=== PATIENT | male | born 1955 | race Caucasian/White ===

== ENCOUNTER 2016-10-21 16:21 | Inpatient (IN) | payer SELFPAY ==
[~2016-10-21] VITALS: Ht 182.9 cm; Wt 77.1 kg
[2016-10-21] MEDS ORDERED: SODIUM CHLOR 0.9% 1000 ML INJ 1,000 ML IV SCH (16:41)
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
--- NOTE | 2016-10-21 17:38 | RADRPT ---
EXAM DATE/TIME: 10/21/2016 17:02 [facility] COMPARISON: CHEST SINGLE AP, June 13, 2015, 18:25. INDICATIONS : Syncopal episode. MEDICAL HISTORY : None. SURGICAL HISTORY : None. ENCOUNTER: Initial ACUITY: 1 day PAIN SCORE: 0/10 LOCATION: chest FINDINGS: The lungs are clear without infiltrate, nodule, or mass. There is no appreciable pleural effusion fo r technique. Heart and mediastinum are unremarkable. CONCLUSION: No acute cardiopulmonary disease. Holger Reddy MD on October 21, 2016 at 17:36 Board Certified Radiologist. This report was verified electronically.
[2016-10-21 17:49] VITALS: O2SAT 95
[2016-10-21 18:10] LABS: AUTOMATED NEUTROPHIL # 9.8 TH/MM3 (1.8-7.7); BASOPHIL # 0.1 TH/MM3 (0-0.2); BASOPHIL % 0.8 % (0.0-2.0); HEMATOCRIT 47.4 % (39.0-51.0); HEMO FLAGS DIFF FINAL; LYMPH % 4.6 % (9.0-44.0); LYMPHOCYTE # 0.5 TH/MM3 (1.0-4.8); MEAN CELL VOLUME 108.8 FL (80.0-100.0); MEAN CORPUSCULAR HEMOGLOBIN 37.4 PG (27.0-34.0); MEAN CORPUSCULAR HGB CONC 34.4 % (32.0-36.0); MONO % 9.4 % (0.0-8.0); NEUT % 85.2 % (16.0-70.0); PLATELET COUNT 211 TH/MM3 (150-450); RED BLOOD COUNT 4.35 MIL/MM3 (4.50-5.90); RED CELL DISTRIBUTION WIDTH 13.2 % (11.6-17.2); WHITE BLOOD COUNT 11.5 TH/MM3 (4.0-11.0)
[2016-10-21 18:18] LABS: APTT (PATIENT) 25.5 SEC (24.3-30.1); INTERNATIONAL NORMALIZED RATIO 1.2 RATIO; PROTHROMBIN TIME - PATIENT 12.9 SEC (9.8-11.6)
[2016-10-21 18:36] LABS: ANION GAP 13 MEQ/L (5-15); CHLORIDE 92 MEQ/L (98-107); GLOMERULAR FILTRATION RATE 71 ML/MIN (>89); MAGNESIUM 1.6 MG/DL (1.5-2.5); SODIUM (NA) 135 MEQ/L (136-145)
[2016-10-21 18:37] LABS: BLOOD UREA NITROGEN 4 MG/DL (7-18)
[2016-10-21 18:39] LABS: POTASSIUM 2.7 MEQ/L (3.5-5.1)
--- NOTE | 2016-10-21 18:40 | RADRPT ---
EXAM DATE/TIME: 10/21/2016 18:11 [facility] COMPARISON: CT BRAIN W/O CONTRAST, June 13, 2015, 19:00. INDICATIONS : Altered mental status. RADIATION DOSE: 56.35 CTDIvol (mGy) MEDICAL HISTORY : Non-responsive. SURGICAL HISTORY : Non-responsive. ENCOUNTER: Initial ACUITY: 1 day PAIN SCALE: Non-responsive LOCATION: cranial TECHNIQUE: Multiple contiguous axial images were obtained of the head. Using automated exposure control and adj ustment of the mA and/or kV according to patient size, radiation dose was kept as low as reasonably a chievable to obtain optimal diagnostic quality images. FINDINGS: CEREBRUM: The ventricles are normal for age. No evidence of midline shift, mass lesion, hemorrhage or acute in farction. No extra-axial fluid collections are seen. POSTERIOR FOSSA: The cerebellum and brainstem are intact. The 4th ventricle is midline. The cerebellopontine angle i s unremarkable. Prominent CSF signal posteriorly likely negative cisterna magna versus less likely ar achnoid cyst, unchanged. EXTRACRANIAL: The visualized portion of the orbits is intact. The there is complete opacification of the left maxil luzmaria sinus, left ethmoid sinus and left frontal sinus. Obstructing mass cannot be excluded. There is bulging of the medial wall of the left maxillary sinus. SKULL: The calvaria is intact. No evidence of skull fracture. CONCLUSION: 1. No acute intracranial abnormality. 2. Complete opacification left maxillary, ethmoid and frontal sinus. Obstructing mass is suspected. E ndoscopy and biopsy recommended if not performed in the past. Los Danielle MD on October 21, 2016 at 18:36 Board Certified Radiologist. This report was verified electronically.
[2016-10-21] MEDS ORDERED: NS + KCL 20 MEQ INJ 1,000 ML IV SCH (18:45)
[2016-10-21] MEDS ORDERED: POTASSIUM CHLORIDE 20 MEQ CONTROLLED RELEASE TAB PO ONE (18:45)
[2016-10-21 18:47] VITALS: BP 135/88; PULSE 109; RESP 18; TEMP 98.2; O2SAT 95
[2016-10-21 19:01] LABS: CREATINE KINASE 63 U/L (39-308)
[2016-10-21] MEDS ORDERED: BISACODYL 10 MG SUPP RECTAL PRN (20:00)
[2016-10-21] MEDS ORDERED: LORazepam 1 MG TAB PO PRN (20:00)
[2016-10-21] MEDS ORDERED: FLUMAZENIL 0.5 MG/5 ML VIAL IV PUSH PRN (20:00)
[2016-10-21] MEDS: THIAMINE INJ 100 MG in SODIUM CHLORIDE 0.9% INJ 100 ML IV SCH ×2 (20:00→22:00)
[2016-10-21] MEDS ORDERED: HALOPERIDOL LACTATE 5 MG/ML AMP IM PRN (20:00)
[2016-10-21] MEDS ORDERED: ACETAMINOPHEN 325 MG TAB PO PRN (20:00)
[2016-10-21] MEDS ORDERED: LORazepam 2 MG TAB PO PRN (20:00)
[2016-10-21] MEDS: MULTIVITAMIN INJ 10 ML, FOLIC ACID INJ 1 MG in SODIUM CHLORID 0.9% 500 ML INJ 500 ML IV SCH (20:00)
[2016-10-21] MEDS ORDERED: ONDANSETRON HCL 4 MG/2 ML VIAL IVP PRN (20:00)
[2016-10-21] MEDS ORDERED: MORPHINE SULFATE 4 MG/ML INJ IV PRN (20:00)
[2016-10-21] MEDS ORDERED: LORazepam 2 MG/ML VIAL IV PUSH PRN ×4 (20:00)
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
[2016-10-21] MEDS: SODIUM CHLORIDE 0.9% FLUSH 10 ML FLUSH IV FLUSH SCH (21:00)
[2016-10-21 22:02] VITALS: BP 136/94; PULSE 105; RESP 16; O2SAT 98
[2016-10-22] VITALS (10 sets, daily range): BP systolic 119–150; BP diastolic 74–106; PULSE 79–110; RESP 16–22; TEMP 96.7–99; O2SAT 92–98
[2016-10-22 01:09] LABS: BACTERIA, URINE OCC /hpf; BLOOD, URINE NEG (NEG); GLUCOSE,URINE NEG (NEG); KETONE, URINE NEG (NEG); NITRITE,URINE NEG (NEG); SQUAMOUS EPITHELIAL CELL URINE <1 /hpf (0-5); URINE COLOR YELLOW (YELLW/STRAW)
[2016-10-22 01:11] LABS: AMPHETAMINE, URINE NEG (NEG); BARBITURATES, URINE NEG (NEG); COCAINE, URINE NEG (NEG)
[2016-10-22 01:12] LABS: COMMENT (UR) CULTURE INDICATED; CULTURE IF INDICATED CULTURE INDICATED
[2016-10-22 07:43] LABS: AUTOMATED NEUTROPHIL # 3.6 TH/MM3 (1.8-7.7); BASOPHIL % 0.7 % (0.0-2.0); EOSINOPHIL % 0.3 % (0.0-4.0); HEMATOCRIT 37.6 % (39.0-51.0); HEMO FLAGS DIFF FINAL; LYMPH % 11.2 % (9.0-44.0); LYMPHOCYTE # 0.5 TH/MM3 (1.0-4.8); MEAN CELL VOLUME 108.5 FL (80.0-100.0); MEAN CORPUSCULAR HGB CONC 34.1 % (32.0-36.0); MONO % 11.4 % (0.0-8.0); NEUT % 76.4 % (16.0-70.0); PLATELET COUNT 133 TH/MM3 (150-450); RED BLOOD COUNT 3.46 MIL/MM3 (4.50-5.90); RED CELL DISTRIBUTION WIDTH 13.2 % (11.6-17.2); WHITE BLOOD COUNT 4.7 TH/MM3 (4.0-11.0)
[2016-10-22 08:18] LABS: ALKALINE PHOSPHATASE 262 U/L (45-117); ALT (GPT) 77 U/L (12-78); ANION GAP 8 MEQ/L (5-15); AST (GOT) 149 U/L (15-37); BICARBONATE 29.1 MEQ/L (21.0-32.0); BLOOD UREA NITROGEN 3 MG/DL (7-18); CHLORIDE 101 MEQ/L (98-107); GLOMERULAR FILTRATION RATE 139 ML/MIN (>89); SODIUM (NA) 138 MEQ/L (136-145); TOTAL BILIRUBIN ADULT 4.5 MG/DL (0.2-1.0)
[2016-10-22 08:36] LABS: POTASSIUM 2.8 MEQ/L (3.5-5.1)
--- NOTE | 2016-10-22 08:40 | PD.CONS ---
History of Present Illness Service ENT Consult Requested By ED Reason for Consult Sinusitis Primary Care Physician No Primary Care Physician Diagnoses: History of Present Illness 61 year old male presented with a syncopal episode and fall. CT head was completed and shows complete opacification of the left maxillary sinus with expansion. Patient notes he does have chronic sinuitis with mild nasal drainage and obstruction on occasion. He feels fairly clear now. Review of Systems Ears, nose, mouth, throat: COMPLAINS OF: Nasal discharge, Running Nose, Sinus Pain, DENIES: Tinnitus, Oral lesions, Throat pain, Hoarseness, Epistaxis Past Family Social History Allergies: Coded Allergies: No Known Allergies (Unverified , 06/13/15) Physical Exam Vital Signs Vital Signs Date Time Temp Pulse Resp B/P Pulse Ox O2 Delivery O2 Flow Rate FiO2 10/22/16 04:28 110 10/22/16 04:00 96.7 102 18 119/80 96 10/22/16 01:27 97.2 104 19 148/88 97 10/22/16 00:30 101 22 150/95 92 Room Air 10/21/16 22:02 105 16 136/94 98 10/21/16 18:47 98.2 109 18 135/88 95 10/21/16 17:49 115 95 Room Air 10/21/16 17:49 95 Room Air Physical Exam GENERAL: This is a well-nourished, well-developed patient, in no apparent distress. SKIN: No rashes, ecchymoses or lesions. Cool and dry. HEAD: Atraumatic. Normocephalic. No temporal or scalp tenderness. EYES: Pupils equal round and reactive. Extraocular motions intact. No scleral icterus. No injection or drainage. ENT: Nose without bleeding. There is mild purulent drainage at the left middle meatus. No septal hematoma. Throat without erythema, tonsillar hypertrophy or exudate. Uvula midline. Airway patent. NECK: Trachea midline. No JVD or lymphadenopathy. Supple, nontender, no meningeal signs. Laboratory Laboratory Tests Test 10/21/16 10/22/16 10/22/16 17:15 00:43 06:31 Prothrombin Time 12.9 Prothromb Time International 1.2 Ratio Activated Partial 25.5 Thromboplast Time Sodium Level 135 Potassium Level 2.7 Chloride Level 92 Carbon Dioxide Level 30.0 Anion Gap 13 Blood Urea Nitrogen 4 Creatinine 1.05 Estimat Glomerular Filtration 71 Rate Random Glucose 126 Calcium Level 8.8 Magnesium Level 1.6 Total Creatine Kinase 63 Troponin I LESS THAN 0.02 Thyroid Stimulating Hormone 2.110 3rd Gen Ethyl Alcohol Level 6 White Blood Count 11.5 4.7 Red Blood Count 4.35 3.46 Hemoglobin 16.3 12.8 Hematocrit 47.4 37.6 Mean Corpuscular Volume 108.8 108.5 Mean Corpuscular Hemoglobin 37.4 37.0 Mean Corpuscular Hemoglobin 34.4 34.1 Concent Red Cell Distribution Width 13.2 13.2 Platelet Count 211 133 Mean Platelet Volume 8.5 8.4 Neutrophils (%) (Auto) 85.2 76.4 Lymphocytes (%) (Auto) 4.6 11.2 Monocytes (%) (Auto) 9.4 11.4 Eosinophils (%) (Auto) 0.0 0.3 Basophils (%) (Auto) 0.8 0.7 Neutrophils # (Auto) 9.8 3.6 Lymphocytes # (Auto) 0.5 0.5 Monocytes # (Auto) 1.1 0.5 Eosinophils # (Auto) 0.0 0.0 Basophils # (Auto) 0.1 0.0 CBC Comment DIFF FINAL DIFF FINAL Differential Comment Urine Color YELLOW Urine Turbidity CLEAR Urine pH 7.0 Urine Specific [place] 1.003 Urine Protein NEG Urine Glucose (UA) NEG Urine Ketones NEG Urine Occult Blood NEG Urine Nitrite NEG Urine Bilirubin SMALL Urine Urobilinogen 4.0 Urine Leukocyte Esterase MOD Urine RBC 1 Urine WBC 10 Urine Squamous Epithelial <1 Cells Urine Amorphous Sediment RARE Urine Bacteria OCC Microscopic Urinalysis Comment CULTURE INDICATED Urine Opiates Screen NEG Urine Barbiturates Screen NEG Urine Amphetamines Screen NEG Urine Benzodiazepines Screen NEG Urine Cocaine Screen NEG Urine Cannabinoids Screen NEG Date/Time Procedure Status Source Growth 10/22/16 00:43 Urine Culture Received Urine Random Urine Pending Result Diagram: 10/22/16 0631 10/21/[address] head shows left front-ethmoid and maxillary obstruction. Some expansion of the maxillary sinus with polypoid change. CT head from June 2015 shows similar findings. No change in soft tissue from that exam. Assessment and Plan Assessment and Plan 61 year old male chronic sinusitis. There is some acute purulence. CT head from a year and a half ago is very similar. All this goes against any neoplastic process. Will treat medically with Decadron and Unasyn as inpatient. Coudl continue 2 week course of Augmentin as outpatient. Alternatively if cost is an isue could continue 2 weeks of Septa DS or Cipro, free at [facility]. Will check dedicated CT of the sinuses, no contrast. Joseph Buckner MD Oct 22, 2016 08:40
[2016-10-22] MEDS: SODIUM CHLORIDE 0.9% FLUSH 10 ML FLUSH IV FLUSH SCH ×2 (08:50→20:05)
[2016-10-22] MEDS ORDERED: DEXAMETHASONE SOD PHOS 4 MG/ML VIAL IV ONE (10:00)
--- NOTE | 2016-10-22 10:29 | RADRPT ---
EXAM DATE/TIME: 10/22/2016 09:08 [facility] COMPARISON: No previous studies available for comparison. INDICATIONS : Evaluate sinuses. RADIATION DOSE: 14.36 CTDIvol (mGy) MEDICAL HISTORY : None SURGICAL HISTORY : Neck. ENCOUNTER: Initial ACUITY: 1 day PAIN SCORE: 4/10 LOCATION: Bilateral sinus. TECHNIQUE: Volumetric scanning of the paranasal sinuses was performed. Using automated exposure control and adjustment of the mA and/or kV according to patient size, radiation dose was kept as low as reasonably achievable to obtain optimal diagnostic quality images. FINDINGS: There is total opacification of the left frontal sinus. There is mucosal disease occupying much of t he left ethmoid air cell, especially anteriorly. There is total opacification of the left maxillary sinus. The uncinate processes are not visualized and may have been surgically removed. The sinus di sease in the right maxillary sinus extends into the lateral nasal cavity on the left. There is mild mucosal disease at the inferior aspect of the right maxillary sinus. There does appear to be mucosal thickening along the expected location of the medial aspect of the maxillary sinus on the right. A patent communication between the right maxillary sinus and the right nasal cavity is not clearly seen . There is some mild anterior right ethmoid sinus disease. The sphenoid sinuses are clear. The thalia al septum is minimally deviated towards the right. The soft tissues are grossly normal. The orbits are intact. CONCLUSION: 1. Extensive mucosal disease on the left. This raises the possibility of polyposis. 2. The uncinate processes are not identified on either side which suggests the patient may have had prior sinus surgery. There does appear to be occlusion of the maxillary sinuses bilaterally secondar y to mucosal disease. The mucosal disease is much worse on the left than the right. Joe Hill MD on October 22, 2016 at 10:17 Board Certified Radiologist. This report was verified electronically.
[2016-10-22] MEDS: AMPICILLIN/SULBAC 1500 MG/NS 100 ML IV SCH ×6 (10:59→22:56)
[2016-10-22] MEDS ORDERED: POTASSIUM CHLORIDE 20 MEQ CONTROLLED RELEASE TAB PO ONE (12:00)
--- NOTE | 2016-10-22 12:05 | HHI.PR ---
Subjective Remarks Patient seen for follow up of syncopal event. 10/22/16-patient seen and evaluated this AM. Mild tachycardia overnight (HR 100s) . Tele reviewed. Only significant event on monitor was sinus tach. Tommie wants to know if he can work with PT today to get his strength back. Otherwise he has no complaints. Denies anxiety. Has mild tremor, which he thinks is from alcohol WD. Denies any visual hallucinations. No SOB or CP. Objective Vitals Vital Signs Date Time Temp Pulse Resp B/P Pulse Ox O2 Delivery O2 Flow Rate FiO2 10/22/16 08:00 98.7 97 16 136/89 92 10/22/16 04:28 110 10/22/16 04:00 96.7 102 18 119/80 96 10/22/16 01:27 97.2 104 19 148/88 97 10/22/16 00:30 101 22 150/95 92 Room Air 10/21/16 22:02 105 16 136/94 98 10/21/16 18:47 98.2 109 18 135/88 95 10/21/16 17:49 115 95 Room Air 10/21/16 17:49 95 Room Air I/O 10/21/16 10/21/16 10/21/16 10/22/16 10/22/16 10/22/16 07:00 15:00 23:00 07:00 15:00 23:00 Intake Total 240 ml 240 ml Output Total 250 ml 100 ml Balance -10 ml 140 ml Intake Oral 240 ml 240 ml Output Urine Total 250 ml 100 ml Result Diagram: 10/22/16 0631 10/22/16 0631 Objective Remarks GENERAL: Middle-aged white male in no acute distress, disheveled. CARDIOVASCULAR: Regular rate and rhythm. No obvious murmurs to auscultation. No chest tenderness to palpation. RESPIRATORY: non-labored breathing. CTAB. No adventitious sounds. GASTROINTESTINAL: abdomen is obviously distended. Soft. Non-tender. +bs. MUSCULOSKELETAL: Extremities without clubbing, cyanosis, or edema. No obvious deformities. Mild tremulousness noted with UEs extended. No asterixis. NEUROLOGICAL: Awake, alert and oriented x4. No focal neurologic deficits. Moving both upper and lower extremities spontaneously. 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 Syncope: witnessed syncopal event while at [employer], no reported seizure activity, c/o dizziness prior to event. At this point, consider dehydration/ alcohol intoxication as most likely cause. CT Head w/ no acute intracranial abnormality, noted to have sinus mass, images reviewed by me. CXR w/ no acute findings, images reviewed. EKG w/ no acute ischemia. Troponin x1 negative. Repeat EKG this morning shows sinus tach with marked left-axis deviation. No acute ST change. Echocardiogram ordered. Will check orthostatic vs this AM. PT has been ordered. 2. Hypokalemia: K+ persistently low at 2.8 this morning. Replete with 2 bags 20 MeQ IV KCL + 40 MeQ PO KCL today and check CMP this afternoon. Repeat ekg ordered this AM, as above. 3. Dehydration: resolved. Normal eGFR this morning. 4. Maxillary Sinus Mass: CT Head w/ complete opacification left maxillary, ethmoid and frontal sinus w/ suspected obstructing mass. ENT has evaluated. CT scan similar to prior, doubt malignancy. CT sinus shows mucosal dz on the left consistent with possible polyposis. ENT has recommended treatment with unasyn IV (10/22-) while inpatient. Plan to DC home on 2 week course of augmentin. 5. Alcohol Abuse: pt admits to drinking Whiskey, unable to quantify but does report withdrawal symptoms. Alcohol 6. Mildly tremulous on admission exam. CIWA, Seizure Precautions, MVT/Thiamine/Folate replacement. Add thiamine, B12, folate, ammonia level to afternoon labs. 6. DVT Prophylaxis: SCD/Teds. 7. Abnormal UA: ? UTI with mod LE and 10 WBC. Will follow up culture. Coverage with unasyn for now. 8. Social work for d/c planning as needed. Problem Qualifiers (1) Syncope: Qualified Code: R55 - Syncope, unspecified syncope type Heraclio Cho MD R3 Oct 22, 2016 12:05
[2016-10-22] MEDS: POTASSIUM CHLOR 20 MEQ PREMIX 100 ML IV SCH ×2 (12:18→17:09)
[2016-10-22 18:01] LABS: ALKALINE PHOSPHATASE 277 U/L (45-117); ALT (GPT) 86 U/L (12-78); ANION GAP 9 MEQ/L (5-15); AST (GOT) 160 U/L (15-37); BICARBONATE 25.3 MEQ/L (21.0-32.0); BLOOD UREA NITROGEN 4 MG/DL (7-18); CHLORIDE 102 MEQ/L (98-107); GLOMERULAR FILTRATION RATE 131 ML/MIN (>89); SODIUM (NA) 136 MEQ/L (136-145)
[2016-10-22] MEDS ORDERED: NS + KCL 20 MEQ INJ 1,000 ML IV ONE (18:45)
[2016-10-22] MEDS: MULTIVITAMIN INJ 10 ML, FOLIC ACID INJ 1 MG in SODIUM CHLORID 0.9% 500 ML INJ 500 ML IV SCH (20:03)
[2016-10-22] MEDS: DEXAMETHASONE SOD PHOS 4 MG/ML VIAL IV SCH (22:55)
[2016-10-23] VITALS: BP 159/103; PULSE 98; RESP 17; TEMP 97.5; O2SAT 98
[2016-10-23] MEDS: AMPICILLIN/SULBAC 1500 MG/NS 100 ML IV SCH ×8 (03:37→23:17)
[2016-10-23 06:58] VITALS: BP 159/100; PULSE 96; RESP 17; TEMP 97.6; O2SAT 98
[2016-10-23 07:38] LABS: BICARBONATE 28.3 MEQ/L (21.0-32.0); POTASSIUM 3.6 MEQ/L (3.5-5.1)
--- NOTE | 2016-10-23 09:56 | HHI.PR ---
Subjective Remarks CT consistent with chronic sinusitis. On Unasyn. 3 doses Decadron. Objective Vital Signs Date Time Temp Pulse Resp B/P Pulse Ox O2 Delivery O2 Flow Rate FiO2 10/23/16 06:58 97.6 96 17 159/100 98 10/23/16 00:00 97.5 98 17 159/103 98 10/22/16 21:00 79 10/22/16 20:00 97.2 100 17 133/87 98 10/22/16 16:00 99.0 99 16 122/74 92 10/22/16 12:19 109 20 144/104 141/104 150/106 I/O 10/22/16 10/22/16 10/22/16 10/23/16 10/23/16 10/23/16 07:00 15:00 23:00 07:00 15:00 23:00 Intake Total 240 ml 480 ml 240 ml 379 ml 600 ml Output Total 250 ml 100 ml 400 ml 600 ml 200 ml Balance -10 ml 380 ml -160 ml -221 ml 400 ml Intake Oral 240 ml 480 ml 240 ml 120 ml 600 ml IV Total 259 ml Output Urine Total 250 ml 100 ml 400 ml 600 ml 200 ml # Bowel Movements 0 0 0 Result Diagram: 10/22/16 0631 10/23/16 0635 Assessment and Plan Assessment and Plan 61 year old male chronic sinusitis. CT sinuses confirms chronic sinus appearance. Stable findings from 2015. On Unasyn in hospital, short steroid treatment. Recommend D/C on Augmentin 875mg BIS 14 days. Would also benefit from generic or OTC Flonase, 2 sprays each side of nose BID. Can follow with ENT as outpatient. Will follow prn. Joseph Buckner MD Oct 23, 2016 09:56
[2016-10-23] MEDS: DEXAMETHASONE SOD PHOS 4 MG/ML VIAL IV SCH (09:58)
[2016-10-23] MEDS: SODIUM CHLORIDE 0.9% FLUSH 10 ML FLUSH IV FLUSH SCH ×2 (09:59→20:39)
[2016-10-23] MEDS ORDERED: FLUT1SPR5 EACH NARE (12:44)
--- NOTE | 2016-10-23 12:48 | HHI.PR ---
Subjective Remarks Patient seen and examined this am. States he feels weak. Is unable to sit up on his own. He is unable to ambulate to the bathroom. He is able to eat. Lives with a friend but feels he needs to go to rehab. Has not gotten out of the bed today. Per nurse he is currently 1 person assist, and latest CIWA score today was 7, yesterday 1, likely detox. Objective Vital Signs Date Time Temp Pulse Resp B/P Pulse Ox O2 Delivery O2 Flow Rate FiO2 10/23/16 06:58 97.6 96 17 159/100 98 10/23/16 00:00 97.5 98 17 159/103 98 10/22/16 21:00 79 10/22/16 20:00 97.2 100 17 133/87 98 10/22/16 16:00 99.0 99 16 122/74 92 I/O 10/22/16 10/22/16 10/22/16 10/23/16 10/23/16 10/23/16 07:00 15:00 23:00 07:00 15:00 23:00 Intake Total 240 ml 480 ml 240 ml 379 ml 600 ml Output Total 250 ml 100 ml 400 ml 600 ml 200 ml Balance -10 ml 380 ml -160 ml -221 ml 400 ml Intake Oral 240 ml 480 ml 240 ml 120 ml 600 ml IV Total 259 ml Output Urine Total 250 ml 100 ml 400 ml 600 ml 200 ml # Bowel Movements 0 0 0 Result Diagram: 10/22/16 0631 10/23/16 0635 Imaging Last Impressions Sinuses CT 10/22/16 0000 Signed Impressions: Service Date/Time: Saturday, October 22, 2016 09:08 - CONCLUSION: 1. Extensive mucosal disease on the left. This raises the possibility of polyposis. 2. The uncinate processes are not identified on either side which suggests the patient may have had prior sinus surgery. There does appear to be occlusion of the maxillary sinuses bilaterally secondary to mucosal disease. The mucosal disease is much worse on the left than the right. Jeo Hill MD Head CT 10/21/16 1641 Signed Impressions: Service Date/Time: Friday, October 21, 2016 18:11 - CONCLUSION: 1. No acute intracranial abnormality. 2. Complete opacification left maxillary, ethmoid and frontal sinus. Obstructing mass is suspected. Endoscopy and biopsy recommended if not performed in the past. Los Danielle MD Chest X-Ray 10/21/16 1641 Signed Impressions: Service Date/Time: Friday, October 21, 2016 17:02 - CONCLUSION: No acute cardiopulmonary disease. Holger Reddy MD Other Results GENERAL: Middle-aged white male in no acute distress, disheveled. CARDIOVASCULAR: Regular rate and rhythm. No obvious murmurs to auscultation. No chest tenderness to palpation. RESPIRATORY: non-labored breathing. CTAB. No adventitious sounds. GASTROINTESTINAL: abdomen is obviously distended. Soft. Non-tender. +bs. MUSCULOSKELETAL: Extremities without clubbing, cyanosis, or edema. No obvious deformities. Mild tremulousness noted with UEs extended. No asterixis. NEUROLOGICAL: Awake, alert and oriented x4. No focal neurologic deficits. Moving both upper and lower extremities spontaneously. 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 Syncope: witnessed syncopal event while at [employer], no reported seizure activity, c/o dizziness prior to event. At this point, consider dehydration/ alcohol intoxication as most likely cause. CT Head w/ no acute intracranial abnormality, noted to have sinus mass. CXR w/ no acute findings, images reviewed. EKG w/ no acute ischemia. Troponin x1 negative. Repeat EKG shows sinus tach with marked left-axis deviation. No acute ST change. Orthostatic vitals wnl. 2. Hypokalemia: wnl 3. Dehydration: resolved. Normal eGFR this morning. 4. Maxillary Sinus Mass: CT Head w/ complete opacification left maxillary, ethmoid and frontal sinus w/ suspected obstructing mass. ENT has evaluated. CT scan similar to prior, doubt malignancy. CT sinus shows mucosal dz on the left consistent with possible polyposis. ENT has recommended treatment with unasyn IV (10/22-) while inpatient. Plan to DC home on 2 week course of augmentin and flonase. 5. Alcohol Abuse: pt admits to drinking Whiskey, unable to quantify but does report withdrawal symptoms. Alcohol 6. Mildly tremulous on admission exam. CIWA, Seizure Precautions, MVT/Thiamine/Folate replacement. Add thiamine, B12, folate, ammonia level to afternoon labs. 6. DVT Prophylaxis: SCD/Teds. 7. Abnormal UA: ? UTI with mod LE and 10 WBC. UC shows probable containment. Currently on abx for sinusitis. Nurse reported some urinary dribbling, and incontinence. Will add some flomax at night. Discharge Planning Will need to clarify PT needs at discharge as it is unclear in their note. At this time is obviously non ambulatory on his own and is not stable for discharge. Case discussed with patients nurse. Problem Qualifiers (1) Syncope: Qualified Code: R55 - Syncope, unspecified syncope type Yanet Saenz MD R3 Oct 23, 2016 12:48
[2016-10-23 13:10] VITALS: PULSE 102
[2016-10-23] MEDS ORDERED: TAMSULOSIN HCL 0.4 MG CAP PO ONE (14:00)
--- NOTE | 2016-10-23 14:28 | EKG ---
Date Performed: 10/22/2016 Time Performed: 13:06:42 PTAGE: 61 years EKG: ECTOPIC ATRIAL TACHYCARDIA WITH SHORT AL INTERVAL MARKED LEFT AXIS DEVIATION POSSIBLE RIGHT VENTRICULAR CONDUCTION DELAY MODERATE VOLTAGE CRITERIA FOR LVH, CONSIDER NORMAL VARIANT Loss of R wa ves in V3,V4,V5 with a leftward shift in axis, possibly lead placement but can represent an occurent injury ABNORMAL ECG PREVIOUS TRACING : 06/13/2015 18.27 DOCTOR: Shaji Alonzo Interpretating Date/Time 10/23/2016 14:26:57
[2016-10-23] MEDS: HYDROCHLOROTHIAZIDE 12.5 MG CAP PO SCH (15:54)
[2016-10-23 16:00] VITALS: BP 142/98; PULSE 94; RESP 16; TEMP 97; O2SAT 94
--- NOTE | 2016-10-23 17:10 | EC ---
Study Study Date:10/23/2016 STUDY CONCLUSIONS SUMMARY - Procedure narrative: Image quality was fair. The study was technically limited due to poor acoustic window availability. - Left ventricle: The cavity size was normal. Systolic function was mildly reduced. The estimated ejection fraction was in the range of 45% to 50%. Although no diagnostic regional wall motion abnormality was identified, this possibility cannot be completely excluded on the basis of this study. The study is not technically sufficient to allow evaluation of LV diastolic function. If LV function is below 40, please consider prescribing an ACEI or ARB or document rationale for non-use. PROCEDURE DATA STUDY STATUS: Elective. Procedure: Transthoracic echocardiography. Image quality was fair. The study was technically limited due to poor acoustic window availability. Scanning was performed from the parasternal, apical, and subcostal acoustic windows. Study completion: The patient tolerated the procedure well. Transthoracic echocardiography. M-mode, complete 2D, complete spectral Doppler, and color Doppler. Patient status: Inpatient. CARDIAC ANATOMY LEFT VENTRICLE: The cavity size was normal. Systolic function was mildly reduced. The estimated ejection fraction was in the range of 45% to 50%. Although no diagnostic regional wall motion abnormality was identified, this possibility cannot be completely excluded on the basis of this study. The study is not technically sufficient to allow evaluation of LV diastolic function. AORTIC VALVE: The valve appears to be grossly normal. Doppler: There was no stenosis. No significant regurgitation. MITRAL VALVE: The valve appears to be grossly normal. Doppler: There was no evidence for stenosis. Trace regurgitation. RIGHT VENTRICLE: The cavity size was normal. PULMONIC VALVE: Not well visualized. Doppler: There was no evidence for stenosis. No significant regurgitation. TRICUSPID VALVE: The valve appears to be grossly normal. Doppler: There was no evidence for stenosis. Trace regurgitation. PERICARDIUM: There was no pericardial effusion. BASIC MEASUREMENTS ADULT Normal Left ventricle LV internal dimension, ED, chordal level, *42.8 mm 43-52 PLAX LV internal dimension, ES, chordal level, 36.7 mm 23-38 PLAX Fractional shortening, chordal level, PLAX *14 % >29 LV posterior wall thickness, ED 7.52 mm IVS/LVPW ratio, ED *1.56 <1.3 Ventricular septum Septal thickness, ED 11.7 mm Aortic valve Leaflet separation 21 mm 15-26 Left atrium Anterior-posterior dimension 31 mm Right ventricle RV internal dimension, ED, PLAX 20 mm 19-38 BASIC MEASUREMENTS ADULT Normal Aortic valve Leaflet separation 21 mm 15-26 Aorta Root diameter, ED *40 mm 20-37 DOPPLER MEASUREMENTS ADULT Normal Main pulmonary artery Pressure, S 15 mm Hg =30 Mitral valve Peak E-wave velocity 39.5 cm/s Peak A-wave velocity 81.4 cm/s Peak E/A ratio 0.5 Tricuspid valve Regurgitant peak velocity 112 cm/s Peak RV-RA gradient, S 5 mm Hg Maximal regurgitant velocity 112 cm/s Systemic veins Estimated CVP 5 mm Hg Right ventricle RV pressure, S 15 mm Hg <30 LEGEND: Mean values are shown as u=mean value. Asterisk (*) maurer values outside specified normal range. Prepared and signed by Lacho Barker [id number]
[2016-10-23 20:00] VITALS: BP 132/89; PULSE 103; RESP 16; TEMP 97.7; O2SAT 94
[2016-10-23 20:15] VITALS: PULSE 106
[2016-10-23] MEDS: THIAMINE INJ 100 MG in SODIUM CHLORIDE 0.9% INJ 100 ML IV SCH (20:30)
[2016-10-23] MEDS: MULTIVITAMIN INJ 10 ML, FOLIC ACID INJ 1 MG in SODIUM CHLORID 0.9% 500 ML INJ 500 ML IV SCH (20:39)
[2016-10-24] VITALS (7 sets, daily range): BP systolic 117–135; BP diastolic 81–96; PULSE 90–125; RESP 17–20; TEMP 96.7–98.4; O2SAT 93–95
[2016-10-24] MEDS: SODIUM CHLORIDE 0.9% FLUSH 10 ML FLUSH IV FLUSH PRN ×2 (01:06→22:40)
[2016-10-24] MEDS: AMPICILLIN/SULBAC 1500 MG/NS 100 ML IV SCH ×8 (05:27→22:40)
[2016-10-24] MEDS: HYDROCHLOROTHIAZIDE 12.5 MG CAP PO SCH (09:19)
[2016-10-24] MEDS: THIAMINE HCL 100 MG TAB PO SCH (09:19)
[2016-10-24] MEDS: SODIUM CHLORIDE 0.9% FLUSH 10 ML FLUSH IV FLUSH SCH ×2 (09:22→20:40)
--- NOTE | 2016-10-24 09:47 | HHI.PR ---
Subjective Remarks Follow up for weakness and syncope. Patient seen and evaluated laying in bed. Patient states he is still weak and just needs more time. He states he is starting to eat better. The need for physical therapy was discussed, but patient was a little resistant, stating he needs more time. No other complaints at this time. Objective Vitals Vital Signs Date Time Temp Pulse Resp B/P Pulse Ox O2 Delivery O2 Flow Rate FiO2 10/24/16 04:00 96.8 90 17 135/88 95 10/24/16 00:00 96.7 90 17 133/90 94 10/23/16 20:15 106 10/23/16 20:00 97.7 103 16 132/89 94 10/23/16 16:00 97.0 94 16 142/98 94 10/23/16 13:10 102 10/23/16 12:00 I/O 10/23/16 10/23/16 10/23/16 10/24/16 10/24/16 10/24/16 07:00 15:00 23:00 07:00 15:00 23:00 Intake Total 379 ml 712 ml 960 ml 540 ml Output Total 600 ml 400 ml 900 ml 200 ml Balance -221 ml 312 ml 60 ml 340 ml Intake Oral 120 ml 600 ml 960 ml IV Total 259 ml 112 ml 540 ml Output Urine Total 600 ml 400 ml 900 ml 200 ml # Bowel Movements 0 1 Result Diagram: 10/22/16 0631 10/23/16 0635 Imaging Last Impressions Sinuses CT 10/22/16 0000 Signed Impressions: Service Date/Time: Saturday, October 22, 2016 09:08 - CONCLUSION: 1. Extensive mucosal disease on the left. This raises the possibility of polyposis. 2. The uncinate processes are not identified on either side which suggests the patient may have had prior sinus surgery. There does appear to be occlusion of the maxillary sinuses bilaterally secondary to mucosal disease. The mucosal disease is much worse on the left than the right. Joe Hill MD Head CT 10/21/16 1641 Signed Impressions: Service Date/Time: Friday, October 21, 2016 18:11 - CONCLUSION: 1. No acute intracranial abnormality. 2. Complete opacification left maxillary, ethmoid and frontal sinus. Obstructing mass is suspected. Endoscopy and biopsy recommended if not performed in the past. Los Danielle MD Chest X-Ray 10/21/16 1641 Signed Impressions: Service Date/Time: Friday, October 21, 2016 17:02 - CONCLUSION: No acute cardiopulmonary disease. Holger Reddy MD Objective Remarks GENERAL: Patient appears unkept, in no distress CARDIOVASCULAR: Regular rate and rhythm. No obvious murmurs to auscultation. No chest tenderness to palpation. RESPIRATORY: non-labored breathing. CTAB. No adventitious sounds. GASTROINTESTINAL: Soft. Non-tender. +bs. MUSCULOSKELETAL: Extremities without clubbing, cyanosis, or edema. No obvious deformities. No tremors noted. NEUROLOGICAL: Awake, alert and oriented x4. No focal neurologic deficits. Moving both upper and lower extremities spontaneously. However generally weak. Medications and IVs Current Medications Medications (Trade) Dose Ordered Sig/Catie Route Start Time Stop Time Status Last Admin Multivitamins 10 ml/Folic Acid 1 mg/Sodium Chloride 510.2 ml @ 125 mls/hr Q24H IV 10/21/16 20:00 10/26/16 19:59 10/23/16 20:39 (Thiamine Inj/NS Inj) 101 ml @ 100 mls/hr Q24H IV 10/21/16 20:00 10/24/16 19:59 10/23/16 20:30 (Vitamin B1) 100 mg DAILY PO 10/24/16 09:00 10/24/16 09:19 (Romazicon Inj) 0.2 mg Q1M PRN IV PUSH 10/21/16 20:00 (Ativan) 1 mg Q4H PRN PO 10/21/16 20:00 (Ativan Inj) 1 mg Q4H PRN IV PUSH 10/21/16 20:00 (Ativan) 2 mg Q2H PRN PO 10/21/16 20:00 (Ativan Inj) 2 mg Q2H PRN IV PUSH 10/21/16 20:00 (Ativan Inj) 2 mg Q1H PRN IV PUSH 10/21/16 20:00 (Ativan Inj) 2 mg Q15M PRN IV PUSH 10/21/16 20:00 (Haldol Inj) 2 mg Q15M PRN IM 10/21/16 20:00 (NS Flush) 2 ml UNSCH PRN IV FLUSH 10/21/16 20:00 10/24/16 01:06 (NS Flush) 2 ml BID IV FLUSH 10/21/16 21:00 10/24/16 09:22 (Zofran Inj) 4 mg Q6H PRN IVP 10/21/16 20:00 (Dulcolax Supp) 10 mg DAILY PRN RECTAL 10/21/16 20:00 (Tylenol) 650 mg Q6H PRN PO 10/21/16 20:00 (Moore 5-325 Mg) 1 tab Q4H PRN PO 10/21/16 20:00 Morphine Sulfate 4 mg 4 mg Q3H PRN IV 10/21/16 20:00 (Unasyn Inj/NS Inj) 100 ml @ 200 mls/hr Q6H IV 10/22/16 10:00 10/24/16 09:19 (Microzide) 12.5 mg DAILY PO 10/23/16 12:45 10/24/16 09:19 A/P Problem List: (1) Syncope ICD Code: R55 Status: Acute (2) Hypokalemia ICD Code: E87.6 Status: Resolved (3) Dehydration ICD Code: E86.0 Status: Resolved (4) 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 CXR w/ no acute findings, images reviewed. EKG w/ no acute ischemia. Troponin x1 negative. Repeat EKG shows sinus tach with marked left-axis deviation. No acute ST change. Orthostatic vitals wnl. Physical deconditioning. Likely related to alcohol. -Reconsult PT for eval and treat -Encourage oral intake Hypokalemia, resolved Dehydration, resolved. Maxillary Sinus Mass CT Head w/ complete opacification left maxillary, ethmoid and frontal sinus w/ suspected obstructing mass. -ENT has evaluated. CT scan similar to prior, doubt malignancy. CT sinus shows mucosal dz on the left consistent with possible polyposis. -ENT has recommended treatment with unasyn IV (10/22-) while inpatient. Plan to DC home on 2 week course of Augmentin and Flonase. Alcohol Abuse, pt admits to drinking Whiskey, unable to quantify but does report withdrawal symptoms. Alcohol 6. -Cont CIWA -Seizure Precautions -Cont MVT/Thiamine/Folate replacement. Add thiamine -B12 and folate wnl, thiamine level pending. 6. DVT Prophylaxis: SCD/Teds. 7. Abnormal UA: ? UTI with mod LE and 10 WBC. UC shows probable containment. -Currently on abx for sinusitis. -Cont Flomax at night. Written by Janell CISNEROS, acting as scribe for [Son] on 10/24/16 at 09:20. This note was transcribed by scribe [Janell CISNEROS]. I, Dr. Jayme Cline personally performed the history, physical exam, and medical decision making; and confirmed the accuracy of the information in the transcribed note. Authenticated by Dr. Jayme Cline on 10/24/16 at 0930. Discharge Planning PT to re eval. May need SNF but he has no benefit. Problem Qualifiers (1) Syncope: Qualified Code: R55 - Syncope, unspecified syncope type Janell Joseph Oct 24, 2016 09:47 Jayme Cline MD Oct 24, 2016 10:09
[2016-10-24] MEDS: MULTIVITAMIN INJ 10 ML, FOLIC ACID INJ 1 MG in SODIUM CHLORID 0.9% 500 ML INJ 500 ML IV SCH (20:38)
[2016-10-25] VITALS (9 sets, daily range): BP systolic 128–145; BP diastolic 89–99; PULSE 91–105; RESP 16–20; TEMP 97–99; O2SAT 94–97
[2016-10-25] MEDS: AMPICILLIN/SULBAC 1500 MG/NS 100 ML IV SCH ×8 (04:53→22:22)
[2016-10-25] MEDS: HYDROCHLOROTHIAZIDE 12.5 MG CAP PO SCH (09:38)
[2016-10-25] MEDS: THIAMINE HCL 100 MG TAB PO SCH (09:38)
--- NOTE | 2016-10-25 12:41 | HHI.PR ---
Subjective Remarks Patient has no new complaints. He suggested that he should stay here and eat good for a week before he can participate with PT. He is eating well. Objective Vitals Vital Signs Date Time Temp Pulse Resp B/P Pulse Ox O2 Delivery O2 Flow Rate FiO2 10/25/16 08:00 98.8 96 20 145/98 94 10/25/16 04:00 97.6 91 17 128/99 97 10/25/16 00:00 97.0 98 17 128/89 94 10/24/16 20:21 102 10/24/16 20:00 98.4 100 17 128/94 94 10/24/16 16:00 98.2 108 18 134/96 93 I/O 10/24/16 10/24/16 10/24/16 10/25/16 10/25/16 10/25/16 07:00 15:00 23:00 07:00 15:00 23:00 Intake Total 540 ml 600 ml 765 ml Output Total 200 ml 1175 ml 1025 ml Balance 340 ml -575 ml -260 ml Intake Oral 600 ml IV Total 540 ml 765 ml Output Urine Total 200 ml 1175 ml 1025 ml # Voids 1 2 # Bowel Movements 1 Result Diagram: 10/22/16 0631 10/23/16 0635 Objective Remarks GENERAL: Patient appears unkept, in no distress CARDIOVASCULAR: Regular rate and rhythm. No obvious murmurs to auscultation. No chest tenderness to palpation. RESPIRATORY: non-labored breathing. CTAB. No adventitious sounds. GASTROINTESTINAL: Soft. Non-tender. +bs. MUSCULOSKELETAL: Extremities without clubbing, cyanosis, or edema. No obvious deformities. No tremors noted. NEUROLOGICAL: Awake, alert and oriented x4. No focal neurologic deficits. Moving both upper and lower extremities spontaneously. However generally weak. 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 CXR w/ no acute findings, images reviewed. EKG w/ no acute ischemia. Troponin x1 negative. Repeat EKG shows sinus tach with marked left-axis deviation. No acute ST change. Orthostatic vitals wnl. Physical deconditioning. Likely related to alcohol. Possibly some neuropathy related to nerve damage from alcoholism. - Pt needs encouragement to participate with PT. He was advised that physical deconditioning may get worse if he is not actively participating with PT. Hypokalemia, resolved Dehydration, resolved. Maxillary Sinus Mass CT Head w/ complete opacification left maxillary, ethmoid and frontal sinus w/ suspected obstructing mass. -ENT has evaluated. CT scan similar to prior, doubt malignancy. CT sinus shows mucosal dz on the left consistent with possible polyposis. -ENT has recommended treatment with unasyn IV (10/22-) while inpatient. Plan to DC home on 2 week course of Augmentin and Flonase. Alcohol Abuse, pt admits to drinking Whiskey, unable to quantify but does report withdrawal symptoms. Alcohol 6. -Cont CIWA -Seizure Precautions -Cont MVT/Thiamine/Folate replacement. Add thiamine -B12 and folate wnl, thiamine level pending. 6. DVT Prophylaxis: SCD/Teds. 7. Abnormal UA: ? UTI with mod LE and 10 WBC. UC shows probable containment. -Currently on abx for sinusitis. -Cont Flomax at night. Discharge Planning Need SNF but he has no benefit. He needs encouragement to participate with PT in order to get strong enough to go home. Problem Qualifiers (1) Syncope: Qualified Code: R55 - Syncope, unspecified syncope type Jayme Cline MD Oct 25, 2016 12:41 Jayme Cline MD Oct 25, 2016 12:41
[2016-10-25] MEDS: SODIUM CHLORIDE 0.9% FLUSH 10 ML FLUSH IV FLUSH SCH ×2 (16:13→20:58)
[2016-10-25] MEDS: MULTIVITAMIN INJ 10 ML, FOLIC ACID INJ 1 MG in SODIUM CHLORID 0.9% 500 ML INJ 500 ML IV SCH (20:58)
[2016-10-25 22:38] LABS: AUTOMATED NEUTROPHIL # 6.6 TH/MM3 (1.8-7.7); BASOPHIL % 0.5 % (0.0-2.0); EOSINOPHIL # 0.1 TH/MM3 (0-0.4); EOSINOPHIL % 0.8 % (0.0-4.0); HEMATOCRIT 42.8 % (39.0-51.0); HEMO FLAGS DIFF FINAL; LYMPHOCYTE # 0.8 TH/MM3 (1.0-4.8); MEAN CELL VOLUME 108.7 FL (80.0-100.0); MEAN CORPUSCULAR HEMOGLOBIN 37.1 PG (27.0-34.0); MEAN CORPUSCULAR HGB CONC 34.1 % (32.0-36.0); MONO % 8.2 % (0.0-8.0); NEUT % 80.5 % (16.0-70.0); PLATELET COUNT 156 TH/MM3 (150-450); RED BLOOD COUNT 3.93 MIL/MM3 (4.50-5.90); RED CELL DISTRIBUTION WIDTH 13.6 % (11.6-17.2); WHITE BLOOD COUNT 8.2 TH/MM3 (4.0-11.0)
[2016-10-25 22:56] LABS: BICARBONATE 29.1 MEQ/L (21.0-32.0); MAGNESIUM 1.4 MG/DL (1.5-2.5)
[2016-10-25] MEDS ORDERED: POTASSIUM CHLORIDE 20 MEQ CONTROLLED RELEASE TAB PO ONE (23:30)
[2016-10-25] MEDS: POTASSIUM CHLOR 20 MEQ PREMIX 100 ML IV SCH (23:52)
[2016-10-26] VITALS (7 sets, daily range): BP systolic 115–145; BP diastolic 75–96; PULSE 84–101; RESP 16–20; TEMP 97–98.7; O2SAT 92–96
[2016-10-26] MEDS: MAGNESIUM SULFATE 1 GM PREMIX 100 ML IV SCH ×4 (00:25→03:23)
[2016-10-26] MEDS: POTASSIUM CHLOR 20 MEQ PREMIX 100 ML IV SCH (03:21)
[2016-10-26] MEDS: AMPICILLIN/SULBAC 1500 MG/NS 100 ML IV SCH ×8 (04:59→21:04)
[2016-10-26] MEDS: SODIUM CHLORIDE 0.9% FLUSH 10 ML FLUSH IV FLUSH PRN (06:21)
[2016-10-26 07:20] LABS: BICARBONATE 27.9 MEQ/L (21.0-32.0); MAGNESIUM 2.5 MG/DL (1.5-2.5)
--- NOTE | 2016-10-26 09:37 | HHI.PR ---
Subjective Remarks Patient reports that he is doing ok. Sitting on the bed. No shortness of breath or chest pain. Feels a little more motivated to work with PT Objective Vitals Vital Signs Date Time Temp Pulse Resp B/P Pulse Ox O2 Delivery O2 Flow Rate FiO2 10/26/16 08:00 98.2 96 20 145/96 92 10/26/16 04:00 97.3 87 17 115/79 94 10/26/16 00:00 98.7 98 17 125/87 94 10/25/16 21:49 98.0 103 16 136/91 94 10/25/16 21:42 100 10/25/16 20:03 101 10/25/16 20:00 97.6 99 17 134/94 94 10/25/16 16:00 98.8 105 20 135/93 96 10/25/16 12:00 99.0 98 20 131/91 96 I/O 10/25/16 10/25/16 10/25/16 10/26/16 10/26/16 10/26/16 07:00 15:00 23:00 07:00 15:00 23:00 Intake Total 765 ml 1450 ml 1150 ml Output Total 1025 ml 850 ml 350 ml Balance -260 ml 600 ml 800 ml Intake Oral 1200 ml IV Total 765 ml 250 ml 1150 ml Output Urine Total 1025 ml 850 ml 350 ml # Voids 2 1 Result Diagram: 10/25/16 2229 10/26/16 0600 Objective Remarks GENERAL: Patient appears unkept, in no distress CARDIOVASCULAR: Regular rate and rhythm. No obvious murmurs to auscultation. No chest tenderness to palpation. RESPIRATORY: non-labored breathing. CTAB. No adventitious sounds. GASTROINTESTINAL: Soft. Non-tender. +bs. MUSCULOSKELETAL: Extremities without clubbing, cyanosis, or edema. No obvious deformities. No tremors noted. NEUROLOGICAL: Awake, alert and oriented x4. No focal neurologic deficits. Moving both upper and lower extremities spontaneously. However generally weak. 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 CXR w/ no acute findings, images reviewed. EKG w/ no acute ischemia. Troponin x1 negative. Repeat EKG shows sinus tach with marked left-axis deviation. No acute ST change. Orthostatic vitals wnl. Physical deconditioning. Likely related to alcohol. Possibly some neuropathy related to nerve damage from alcoholism. - Pt needs encouragement to participate with PT. He was advised that physical deconditioning may get worse if he is not actively participating with PT. I ordered daily PT. Hypokalemia, resolved Dehydration, resolved. Maxillary Sinus Mass CT Head w/ complete opacification left maxillary, ethmoid and frontal sinus w/ suspected obstructing mass. -ENT has evaluated. CT scan similar to prior, doubt malignancy. CT sinus shows mucosal dz on the left consistent with possible polyposis. -ENT has recommended treatment with unasyn IV (10/22-) while inpatient. Plan to DC home on 2 week course of Augmentin and Flonase. Alcohol Abuse, pt admits to drinking Whiskey, unable to quantify but does report withdrawal symptoms. Alcohol 6. -Cont CIWA -Seizure Precautions -Cont MVT/Thiamine/Folate replacement. Add thiamine -B12 and folate wnl, thiamine level pending. 6. DVT Prophylaxis: SCD/Teds. 7. Abnormal UA: ? UTI with mod LE and 10 WBC. UC shows probable containment. -Currently on abx for sinusitis. -Cont Flomax at night. Discharge Planning Need SNF but he has no benefit. He needs encouragement to participate with PT in order to get strong enough to go home. patient can be transferred to [place]. I will discuss with Dr. Reynolds. Problem Qualifiers (1) Syncope: Qualified Code: R55 - Syncope, unspecified syncope type Jayme Cline MD Oct 26, 2016 09:37
[2016-10-26] MEDS: THIAMINE HCL 100 MG TAB PO SCH (09:59)
[2016-10-26] MEDS: HYDROCHLOROTHIAZIDE 12.5 MG CAP PO SCH (09:59)
[2016-10-26] MEDS: SODIUM CHLORIDE 0.9% FLUSH 10 ML FLUSH IV FLUSH SCH ×2 (09:59→21:03)
[2016-10-27] VITALS (8 sets, daily range): BP systolic 132–157; BP diastolic 90–99; PULSE 85–111; RESP 16–20; TEMP 96.8–98.9; O2SAT 93–96
[2016-10-27] MEDS: AMPICILLIN/SULBAC 1500 MG/NS 100 ML IV SCH ×8 (04:10→21:48)
[2016-10-27] MEDS: SODIUM CHLORIDE 0.9% FLUSH 10 ML FLUSH IV FLUSH SCH ×2 (08:37→20:17)
[2016-10-27] MEDS: HYDROCHLOROTHIAZIDE 12.5 MG CAP PO SCH (08:37)
[2016-10-27] MEDS: THIAMINE HCL 100 MG TAB PO SCH (08:37)
--- NOTE | 2016-10-27 08:40 | HHI.PR ---
Subjective Remarks Discussed echocardiogram results with the patient again today (EF is 45-50%). His syncope would not likely have been related to his mildly decreased EF. Weakness remains, PT is ongoing. No complaints from the patient other than weakness. Objective Vital Signs Date Time Temp Pulse Resp B/P Pulse Ox O2 Delivery O2 Flow Rate FiO2 10/27/16 08:15 97.9 90 16 143/90 93 10/27/16 05:24 96.8 90 16 157/90 93 10/27/16 00:37 97.9 87 16 152/95 96 10/26/16 21:00 95 10/26/16 20:34 97.8 96 16 126/81 95 10/26/16 17:00 97.0 84 18 119/75 96 10/26/16 12:00 97.3 101 20 121/86 96 I/O 10/26/16 10/26/16 10/26/16 10/27/16 10/27/16 10/27/16 07:00 15:00 23:00 07:00 15:00 23:00 Intake Total 1150 ml 480 ml 950 ml 300 ml Output Total 350 ml 500 ml 400 ml 650 ml Balance 800 ml -20 ml 550 ml -350 ml Intake Oral 480 ml 950 ml 300 ml IV Total 1150 ml 0 ml Output Urine Total 350 ml 500 ml 400 ml 650 ml # Voids 2 # Bowel Movements 1 0 1 Result Diagram: 10/25/16 2229 10/26/16 0600 Imaging Last Impressions Sinuses CT 10/22/16 0000 Signed Impressions: Service Date/Time: Saturday, October 22, 2016 09:08 - CONCLUSION: 1. Extensive mucosal disease on the left. This raises the possibility of polyposis. 2. The uncinate processes are not identified on either side which suggests the patient may have had prior sinus surgery. There does appear to be occlusion of the maxillary sinuses bilaterally secondary to mucosal disease. The mucosal disease is much worse on the left than the right. Joe Hill MD Head CT 10/21/16 1641 Signed Impressions: Service Date/Time: Friday, October 21, 2016 18:11 - CONCLUSION: 1. No acute intracranial abnormality. 2. Complete opacification left maxillary, ethmoid and frontal sinus. Obstructing mass is suspected. Endoscopy and biopsy recommended if not performed in the past. Los Danielle MD Chest X-Ray 10/21/16 1641 Signed Impressions: Service Date/Time: Friday, October 21, 2016 17:02 - CONCLUSION: No acute cardiopulmonary disease. Holger Reddy MD Objective Remarks GENERAL: NAD, A&Ox3 SKIN: Warm and dry. HEAD: Normocephalic. EYES: No scleral icterus. No injection or drainage. NECK: Supple, trachea midline. No JVD or lymphadenopathy. CARDIOVASCULAR: Regular rate and rhythm without murmurs, gallops, or rubs. RESPIRATORY: Breath sounds equal bilaterally. No accessory muscle use. GASTROINTESTINAL: Abdomen soft, non-tender, nondistended. MUSCULOSKELETAL: No cyanosis, or edema. BACK: Nontender without obvious deformity. No CVA tenderness. Medications and IVs Administered Medications Medications (Trade) Dose Ordered Sig/Catie Route PRN Reason Start Time Stop Time Status Last Admin Dose Admin Thiamine HCl (Vitamin B1) 100 mg DAILY PO 10/24/16 09:00 10/26/16 09:59 Sodium Chloride (NS Flush) 2 ml UNSCH PRN IV FLUSH FLUSH AFTER USING IV ACCESS 10/21/16 20:00 10/26/16 06:21 Sodium Chloride 2 ml 2 ml BID IV FLUSH 10/21/16 21:00 10/26/16 21:03 Ampicillin Sodium/ Sulbactam Sodium/ Sodium Chloride (Unasyn Inj/NS Inj) 100 ml @ 200 mls/hr Q6H IV 10/22/16 10:00 10/27/16 04:10 Hydrochlorothiazide (Microzide) 12.5 mg DAILY PO 10/23/16 12:45 10/26/16 09:59 A/P Problem List: (1) Syncope ICD Code: R55 (2) Maxillary sinus mass ICD Code: R22.0 (3) Abnormal urinalysis ICD Code: R82.90 (4) Dehydration ICD Code: E86.0 (5) Hypokalemia ICD Code: E87.6 (6) Weakness ICD Code: R53.1 (7) Alcohol abuse ICD Code: F10.10 Assessment and Plan A/P: Syncope No recurrence Following on telemetry Work up did not reveal a pathologic etiology Etiology more suspect to be related to alcohol abuse hx. 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
[2016-10-28] VITALS (7 sets, daily range): BP systolic 109–135; BP diastolic 70–92; PULSE 92–111; RESP 16–20; TEMP 97.9–99.7; O2SAT 91–96
[2016-10-28] MEDS: AMPICILLIN/SULBAC 1500 MG/NS 100 ML IV SCH ×8 (04:40→21:14)
[2016-10-28] MEDS: SODIUM CHLORIDE 0.9% FLUSH 10 ML FLUSH IV FLUSH SCH ×2 (09:54→21:14)
[2016-10-28] MEDS: THIAMINE HCL 100 MG TAB PO SCH (09:54)
[2016-10-28] MEDS: HYDROCHLOROTHIAZIDE 12.5 MG CAP PO SCH (09:54)
--- NOTE | 2016-10-28 10:23 | HHI.PR ---
Subjective Remarks Doing well. Starting to ambulate more. Continues to need assistance with ambulation because he is not not fully steady, using walker. Objective Vital Signs Date Time Temp Pulse Resp B/P Pulse Ox O2 Delivery O2 Flow Rate FiO2 10/28/16 08:23 98.1 93 16 129/82 95 10/28/16 04:00 97.9 92 18 109/70 92 10/28/16 00:00 97.9 95 17 125/88 91 10/27/16 21:00 85 10/27/16 20:00 98.4 89 20 95 10/27/16 16:00 98.9 95 16 155/94 96 10/27/16 14:17 90 10/27/16 12:08 98.7 111 16 132/99 94 I/O 10/27/16 10/27/16 10/27/16 10/28/16 10/28/16 10/28/16 07:00 15:00 23:00 07:00 15:00 23:00 Intake Total 300 ml 720 ml 120 ml Output Total 650 ml 550 ml 975 ml 400 ml Balance -350 ml 170 ml -975 ml -280 ml Intake Oral 300 ml 600 ml IV Total 120 ml 120 ml Output Urine Total 650 ml 550 ml 775 ml 400 ml Stool Total 200 ml # Voids 2 # Bowel Movements 1 1 Result Diagram: 10/25/16 2229 10/26/16 0600 Objective Remarks GENERAL: NAD, A&Ox3 SKIN: Warm and dry. HEAD: Normocephalic. EYES: No scleral icterus. No injection or drainage. NECK: Supple, trachea midline. No JVD or lymphadenopathy. CARDIOVASCULAR: Regular rate and rhythm without murmurs, gallops, or rubs. RESPIRATORY: Breath sounds equal bilaterally. No accessory muscle use. GASTROINTESTINAL: Abdomen soft, non-tender, nondistended. MUSCULOSKELETAL: No cyanosis, or edema. BACK: Nontender without obvious deformity. No CVA tenderness. A/P Problem List: (1) Syncope ICD Code: R55 (2) Maxillary sinus mass ICD Code: R22.0 (3) Abnormal urinalysis ICD Code: R82.90 (4) Dehydration ICD Code: E86.0 (5) Hypokalemia ICD Code: E87.6 (6) Weakness ICD Code: R53.1 (7) Alcohol abuse ICD Code: F10.10 Assessment and Plan A/P: Syncope Resolved No recurrence Following on telemetry Work up did not reveal a pathologic etiology Etiology more suspect to be related to alcohol abuse hx. 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
[2016-10-29] VITALS: BP 121/83; PULSE 97; RESP 18; TEMP 98.4; O2SAT 95
[2016-10-29 04:00] VITALS: BP 131/89; PULSE 82; RESP 17; TEMP 96.8; O2SAT 93
[2016-10-29] MEDS: AMPICILLIN/SULBAC 1500 MG/NS 100 ML IV SCH ×8 (04:14→21:54)
[2016-10-29 08:12] LABS: HEMATOCRIT 40.7 % (39.0-51.0); MEAN CELL VOLUME 108.4 FL (80.0-100.0); MEAN CORPUSCULAR HEMOGLOBIN 37.6 PG (27.0-34.0); MEAN CORPUSCULAR HGB CONC 34.6 % (32.0-36.0); PLATELET COUNT 178 TH/MM3 (150-450); RED BLOOD COUNT 3.75 MIL/MM3 (4.50-5.90); RED CELL DISTRIBUTION WIDTH 13.1 % (11.6-17.2); REVIEW FLAG FINAL; WHITE BLOOD COUNT 5.3 TH/MM3 (4.0-11.0)
[2016-10-29 08:19] LABS: BICARBONATE 26.3 MEQ/L (21.0-32.0); POTASSIUM 3.5 MEQ/L (3.5-5.1)
[2016-10-29 09:39] VITALS: BP 119/88; PULSE 99; RESP 20; TEMP 96.8; O2SAT 96
[2016-10-29] MEDS: HYDROCHLOROTHIAZIDE 12.5 MG CAP PO SCH (10:09)
[2016-10-29] MEDS: THIAMINE HCL 100 MG TAB PO SCH (10:09)
[2016-10-29] MEDS: SODIUM CHLORIDE 0.9% FLUSH 10 ML FLUSH IV FLUSH SCH ×2 (10:09→20:08)
--- NOTE | 2016-10-29 10:35 | HHI.PR ---
Subjective Remarks Medically stable. Ongoing PT. Progress with ambulation continues. Objective Vital Signs Date Time Temp Pulse Resp B/P Pulse Ox O2 Delivery O2 Flow Rate FiO2 10/29/16 09:39 96.8 99 20 119/88 96 10/29/16 04:00 96.8 82 17 131/89 93 10/29/16 00:00 98.4 97 18 121/83 95 10/28/16 21:00 105 10/28/16 20:00 98.5 107 20 135/92 96 10/28/16 16:00 99.7 111 16 122/79 94 10/28/16 12:00 98.8 99 16 116/72 91 I/O 10/28/16 10/28/16 10/28/16 10/29/16 10/29/16 10/29/16 07:00 15:00 23:00 07:00 15:00 23:00 Intake Total 120 ml 240 ml 240 ml 360 ml Output Total 400 ml 200 ml 300 ml 1245 ml Balance -280 ml 40 ml -60 ml -885 ml Intake Oral 240 ml 240 ml 240 ml IV Total 120 ml 120 ml Output Urine Total 400 ml 200 ml 300 ml 1245 ml Result Diagram: 10/29/16 0659 10/29/16 0659 Objective Remarks GENERAL: NAD, A&Ox3 SKIN: Warm and dry. HEAD: Normocephalic. EYES: No scleral icterus. No injection or drainage. NECK: Supple, trachea midline. No JVD or lymphadenopathy. CARDIOVASCULAR: Regular rate and rhythm without murmurs, gallops, or rubs. RESPIRATORY: Breath sounds equal bilaterally. No accessory muscle use. GASTROINTESTINAL: Abdomen soft, non-tender, nondistended. MUSCULOSKELETAL: No cyanosis, or edema. BACK: Nontender without obvious deformity. No CVA tenderness. Medications and IVs Administered Medications Medications (Trade) Dose Ordered Sig/Catie Route PRN Reason Start Time Stop Time Status Last Admin Dose Admin Thiamine HCl (Vitamin B1) 100 mg DAILY PO 10/24/16 09:00 10/29/16 10:09 Sodium Chloride (NS Flush) 2 ml UNSCH PRN IV FLUSH FLUSH AFTER USING IV ACCESS 10/21/16 20:00 10/26/16 06:21 Sodium Chloride 2 ml 2 ml BID IV FLUSH 10/21/16 21:00 10/29/16 10:09 Ampicillin Sodium/ Sulbactam Sodium/ Sodium Chloride (Unasyn Inj/NS Inj) 100 ml @ 200 mls/hr Q6H IV 10/22/16 10:00 10/29/16 10:09 Hydrochlorothiazide (Microzide) 12.5 mg DAILY PO 10/23/16 12:45 10/29/16 10:09 A/P Problem List: (1) Syncope ICD Code: R55 (2) Maxillary sinus mass ICD Code: R22.0 (3) Abnormal urinalysis ICD Code: R82.90 (4) Dehydration ICD Code: E86.0 (5) Hypokalemia ICD Code: E87.6 (6) Weakness ICD Code: R53.1 (7) Alcohol abuse ICD Code: F10.10 Assessment and Plan A/P: Syncope Resolved No recurrence Work up did not reveal a pathologic etiology Etiology more suspect to be related to alcohol abuse hx. 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
[2016-10-29 12:00] VITALS: BP 128/87; PULSE 95; RESP 18; TEMP 96.4; O2SAT 94
[2016-10-29 18:00] VITALS: BP 142/72; PULSE 106; RESP 18; TEMP 98.5; O2SAT 96
[2016-10-29 20:00] VITALS: BP 111/72; PULSE 105; RESP 18; TEMP 98.5; O2SAT 95
[2016-10-30] VITALS: BP 141/94; PULSE 90; RESP 18; TEMP 96.9; O2SAT 97
[2016-10-30 04:00] VITALS: BP 130/84; PULSE 90; RESP 18; TEMP 97.2; O2SAT 100
[2016-10-30] MEDS: AMPICILLIN/SULBAC 1500 MG/NS 100 ML IV SCH ×8 (05:25→22:58)
[2016-10-30 08:00] VITALS: BP 134/95; PULSE 100; RESP 18; TEMP 98.8; O2SAT 98
[2016-10-30] MEDS: HYDROCHLOROTHIAZIDE 12.5 MG CAP PO SCH (08:58)
[2016-10-30] MEDS: THIAMINE HCL 100 MG TAB PO SCH (08:58)
[2016-10-30] MEDS: SODIUM CHLORIDE 0.9% FLUSH 10 ML FLUSH IV FLUSH SCH ×2 (08:58→20:53)
--- NOTE | 2016-10-30 10:30 | HHI.PR ---
Subjective Remarks No new complaints from the patient. Medically stable. Ongoing PT. Progress with ambulation continues. Objective Vital Signs Date Time Temp Pulse Resp B/P Pulse Ox O2 Delivery O2 Flow Rate FiO2 10/30/16 08:00 98.8 100 18 134/95 98 10/30/16 04:00 97.2 90 18 130/84 100 10/30/16 00:00 96.9 90 18 141/94 97 10/29/16 20:00 98.5 105 18 111/72 95 10/29/16 18:00 98.5 106 18 142/72 96 10/29/16 12:00 96.4 95 18 128/87 94 I/O 10/29/16 10/29/16 10/29/16 10/30/16 10/30/16 10/30/16 07:00 15:00 23:00 07:00 15:00 23:00 Intake Total 360 ml 840 ml 120 ml Output Total 1245 ml 400 ml 500 ml 575 ml Balance -885 ml 440 ml -500 ml -455 ml Intake Oral 240 ml 840 ml 120 ml IV Total 120 ml Output Urine Total 1245 ml 400 ml 500 ml 575 ml # Bowel Movements 1 Result Diagram: 10/29/16 0659 10/29/16 0659 Objective Remarks GENERAL: NAD, A&Ox3 SKIN: Warm and dry. HEAD: Normocephalic. EYES: No scleral icterus. No injection or drainage. NECK: Supple, trachea midline. No JVD or lymphadenopathy. CARDIOVASCULAR: Regular rate and rhythm without murmurs, gallops, or rubs. RESPIRATORY: Breath sounds equal bilaterally. No accessory muscle use. GASTROINTESTINAL: Abdomen soft, non-tender, nondistended. MUSCULOSKELETAL: No cyanosis, or edema. BACK: Nontender without obvious deformity. No CVA tenderness. 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
[2016-10-30 13:00] VITALS: BP 132/78; PULSE 97; RESP 18; TEMP 98.9; O2SAT 95
[2016-10-30 16:00] VITALS: BP 140/94; PULSE 99; RESP 18; TEMP 99.5; O2SAT 95
[2016-10-30 20:00] VITALS: BP 143/94; PULSE 96; RESP 19; TEMP 99; O2SAT 95
[2016-10-30] MEDS: SODIUM CHLORIDE 0.9% FLUSH 10 ML FLUSH IV FLUSH PRN ×2 (20:53→22:59)
[2016-10-31] VITALS (9 sets, daily range): BP systolic 100–139; BP diastolic 60–100; PULSE 77–92; RESP 16–18; TEMP 97.7–99; O2SAT 93–95
[2016-10-31] MEDS: SODIUM CHLORIDE 0.9% FLUSH 10 ML FLUSH IV FLUSH PRN ×5 (00:23→22:35)
[2016-10-31] MEDS: AMPICILLIN/SULBAC 1500 MG/NS 100 ML IV SCH ×8 (03:59→22:02)
[2016-10-31] MEDS: THIAMINE HCL 100 MG TAB PO SCH (09:02)
[2016-10-31] MEDS: HYDROCHLOROTHIAZIDE 12.5 MG CAP PO SCH (09:02)
[2016-10-31] MEDS: SODIUM CHLORIDE 0.9% FLUSH 10 ML FLUSH IV FLUSH SCH ×2 (09:05→21:30)
[2016-10-31] MEDS: cloNIDine HCL 0.1 MG TAB PO PRN (11:12)
--- NOTE | 2016-10-31 11:26 | HHI.PR ---
Subjective Remarks Diastolic BP elevated today. No new complaints from the patient. Medically stable. Ongoing PT. Progress with ambulation continues, no off walker with assistance. Objective Vital Signs Date Time Temp Pulse Resp B/P Pulse Ox O2 Delivery O2 Flow Rate FiO2 10/31/16 08: 98.1 91 16 137/99 93 10/31/16 04:00 97.8 82 18 133/94 94 10/31/16 00:00 99.0 86 17 120/84 95 10/30/16 20:00 99.0 96 19 143/94 95 10/30/16 16:00 99.5 99 18 140/94 95 10/30/16 13:00 98.9 97 18 132/78 95 I/O 10/30/16 10/30/16 10/30/16 10/31/16 10/31/16 10/31/16 07:00 15:00 23:00 07:00 15:00 23:00 Intake Total 120 ml 1040 ml 480 ml 705 ml Output Total 575 ml 400 ml 900 ml 850 ml Balance -455 ml 640 ml -420 ml -145 ml Intake Oral 120 ml 840 ml 480 ml 480 ml IV Total 200 ml 225 ml Output Urine Total 575 ml 400 ml 900 ml 850 ml # Bowel Movements 0 0 Result Diagram: 10/29/1659 10/29/16 06 Objective Remarks GENERAL: NAD, A&Ox3 SKIN: Warm and dry. HEAD: Normocephalic. EYES: No scleral icterus. No injection or drainage. NECK: Supple, trachea midline. No JVD or lymphadenopathy. CARDIOVASCULAR: Regular rate and rhythm without murmurs, gallops, or rubs. RESPIRATORY: Breath sounds equal bilaterally. No accessory muscle use. GASTROINTESTINAL: Abdomen soft, non-tender, nondistended. MUSCULOSKELETAL: No cyanosis, or edema. BACK: Nontender without obvious deformity. No CVA tenderness. Medications and IVs Administered Medications Medications (Trade) Dose Ordered Sig/Catie Route PRN Reason Start Time Stop Time Status Last Admin Dose Admin Thiamine HCl (Vitamin B1) 100 mg DAILY PO 10/24/16 09:00 10/31/16 09:02 Sodium Chloride (NS Flush) 2 ml UNSCH PRN IV FLUSH FLUSH AFTER USING IV ACCESS 10/21/16 20:00 10/31/16 05:23 Sodium Chloride 2 ml 2 ml BID IV FLUSH 10/21/16 21:00 10/31/16 09:05 Ampicillin Sodium/ Sulbactam Sodium/ Sodium Chloride (Unasyn Inj/NS Inj) 100 ml @ 200 mls/hr Q6H IV 10/22/16 10:00 10/31/16 09:02 Clonidine (Catapres) 0.1 mg Q6H PRN PO SBP>160, DBP>90 10/31/16 11:15 10/31/16 11:12 A/P Problem List: (1) Syncope ICD Code: R55 (2) Maxillary sinus mass ICD Code: R22.0 (3) Abnormal urinalysis ICD Code: R82.90 (4) Dehydration ICD Code: E86.0 (5) Hypokalemia ICD Code: E87.6 (6) Weakness ICD Code: R53.1 (7) Alcohol abuse ICD Code: F10.10 (8) HTN (hypertension) ICD Code: I10 Assessment and Plan A/P: Physical deconditioning Continue PT, patient is cooperative 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
[2016-11-01] VITALS: BP 119/84; PULSE 90; RESP 18; TEMP 98.2; O2SAT 93
[2016-11-01] MEDS: SODIUM CHLORIDE 0.9% FLUSH 10 ML FLUSH IV FLUSH PRN ×2 (04:04→23:58)
[2016-11-01] MEDS: AMPICILLIN/SULBAC 1500 MG/NS 100 ML IV SCH ×8 (04:04→23:57)
[2016-11-01 08:00] VITALS: BP 121/85; PULSE 93; RESP 16; TEMP 98.5; O2SAT 93
[2016-11-01] MEDS: THIAMINE HCL 100 MG TAB PO SCH (09:08)
[2016-11-01] MEDS: HYDROCHLOROTHIAZIDE 25 MG TAB PO SCH (09:08)
[2016-11-01] MEDS: SODIUM CHLORIDE 0.9% FLUSH 10 ML FLUSH IV FLUSH SCH ×2 (09:10→20:41)
--- NOTE | 2016-11-01 16:11 | HHI.PR ---
Subjective Remarks Patient evaluated this morning. Patient initially presented to the ED on 10/21 for syncope and was admitted for this. He is currently on IV antibiotics for sinusitis. Patient was transferred to [facility] yesterday for rehabilitation as he is physically deconditioned. No acute medical complaints. Objective Vitals Vital Signs Date Time Temp Pulse Resp B/P Pulse Ox O2 Delivery O2 Flow Rate FiO2 11/01/16 08:00 98.5 93 16 121/85 93 11/01/16 00:00 98.2 90 18 119/84 93 10/31/16 23:00 98.5 85 16 122/85 95 10/31/16 20:00 97.8 80 16 100/60 94 10/31/16 16:55 97.7 77 16 122/81 93 I/O 10/31/16 10/31/16 10/31/16 11/01/16 11/01/16 11/01/16 07:00 15:00 23:00 07:00 15:00 23:00 Intake Total 705 ml 360 ml 300 ml 660 ml Output Total 850 ml 450 ml 250 ml 300 ml Balance -145 ml -450 ml 360 ml 50 ml 360 ml Intake Oral 480 ml 360 ml 300 ml 660 ml IV Total 225 ml Output Urine Total 850 ml 450 ml 250 ml 300 ml # Voids 3 # Bowel Movements 0 1 0 Result Diagram: 10/29/1665810/29/16658 Objective Remarks GENERAL: Well-nourished, well-developed patient in no apparent distress. SKIN: Warm and dry. HEAD: Atraumatic. Normocephalic. CARDIOVASCULAR: Regular rate and rhythm. RESPIRATORY: No accessory muscle use. Clear to auscultation. Breath sounds equal bilaterally. GASTROINTESTINAL: Abdomen soft, non-tender, nondistended. NEUROLOGICAL: Awake and alert. Motor grossly within normal limits. Normal speech. PSYCHIATRIC: Appropriate mood and affect. 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 Will discuss with PT tomorrow regarding potential discharge. Problem Qualifiers (1) Syncope: Qualified Code: R55 - Syncope, unspecified syncope type Toya Nguyen November 01, 2016 16:11
[2016-11-01 20:00] VITALS: BP 151/90; PULSE 92; RESP 21; TEMP 97.6; O2SAT 96
[2016-11-02] MEDS: AMPICILLIN/SULBAC 1500 MG/NS 100 ML IV SCH ×8 (05:56→23:52)
[2016-11-02] MEDS: SODIUM CHLORIDE 0.9% FLUSH 10 ML FLUSH IV FLUSH PRN (05:57)
[2016-11-02 08:00] VITALS: BP_SYST 138; BP_SYST 151; BP_SYST 153; BP_DIAS 104; BP_DIAS 110; BP_DIAS 91; PULSE 79; RESP 18; TEMP 98.2; O2SAT 94
[2016-11-02] MEDS: THIAMINE HCL 100 MG TAB PO SCH (09:36)
[2016-11-02] MEDS: HYDROCHLOROTHIAZIDE 25 MG TAB PO SCH (09:36)
[2016-11-02] MEDS: SODIUM CHLORIDE 0.9% FLUSH 10 ML FLUSH IV FLUSH SCH ×2 (09:36→20:33)
--- NOTE | 2016-11-02 09:44 | HHI.PR ---
Subjective Remarks "I'm feeling pretty good this morning." Pt encountered laying a bed with breakfast tray present and evidence of pt having eaten some of the food. Pt denied dizziness, headache, fever, nausea, vomiting, of diarrhea. Pt reported he has been performing his PT exercises while in bed. 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 He reported they were found and "I felt better." No other issues noted or reported. Objective Vitals Vital Signs Date Time Temp Pulse Resp B/P Pulse Ox O2 Delivery O2 Flow Rate FiO2 11/02/16 08:00 98.2 79 18 153/110 94 151/104 138/91 11/01/16 20:00 97.6 92 21 151/90 96 I/O 11/01/16 11/01/16 11/01/16 11/02/16 11/02/16 11/02/16 07:00 15:00 23:00 07:00 15:00 23:00 Intake Total 300 ml 660 ml 240 ml 120 ml Output Total 250 ml 300 ml 150 ml 375 ml Balance 50 ml 360 ml 90 ml -255 ml Intake Oral 300 ml 660 ml 240 ml 120 ml Output Urine Total 250 ml 300 ml 150 ml 375 ml # Voids 50 # Bowel Movements 0 Result Diagram: 10/29/1665810/29/16658 Imaging No imaging results within the past 24 hours. Objective Remarks GENERAL: Pt awake and alert, laying a bed, eating breakfast. SKIN: Warm and dry. HEAD: Normocephalic. EYES: No scleral icterus. No injection or drainage. NECK: Supple, trachea midline. No JVD or lymphadenopathy. CARDIOVASCULAR: Regular rate and rhythm without murmurs, gallops, or rubs. RESPIRATORY: Breath sounds equal bilaterally. No accessory muscle use. GASTROINTESTINAL: Abdomen soft, non-tender, nondistended. MUSCULOSKELETAL: No cyanosis, or edema. PSYCHIATRIC: Alert and oriented, mood and affect congruent, without overt signs of anxiety, depression or gross presentation of psychosis. Procedures None Medications and IVs Current Medications Medications (Trade) Dose Ordered Sig/Catie Route Start Time Stop Time Status Last Admin (Vitamin B1) 100 mg DAILY PO 10/24/16 09:00 11/02/16 09:36 (Romazicon Inj) 0.2 mg Q1M PRN IV PUSH 10/21/16 20:00 (Ativan) 1 mg Q4H PRN PO 10/21/16 20:00 (Ativan Inj) 1 mg Q4H PRN IV PUSH 10/21/16 20:00 (Ativan) 2 mg Q2H PRN PO 10/21/16 20:00 (Ativan Inj) 2 mg Q2H PRN IV PUSH 10/21/16 20:00 (Ativan Inj) 2 mg Q1H PRN IV PUSH 10/21/16 20:00 (Ativan Inj) 2 mg Q15M PRN IV PUSH 10/21/16 20:00 (Haldol Inj) 2 mg Q15M PRN IM 10/21/16 20:00 (NS Flush) 2 ml UNSCH PRN IV FLUSH 10/21/16 20:00 11/02/16 05:57 (NS Flush) 2 ml BID IV FLUSH 10/21/16 21:00 11/02/16 09:36 (Zofran Inj) 4 mg Q6H PRN IVP 10/21/16 20:00 (Dulcolax Supp) 10 mg DAILY PRN RECTAL 10/21/16 20:00 (Tylenol) 650 mg Q6H PRN PO 10/21/16 20:00 ([place] 5-325 Mg) 1 tab Q4H PRN PO 10/21/16 20:00 Morphine Sulfate 4 mg 4 mg Q3H PRN IV 10/21/16 20:00 (Unasyn Inj/NS Inj) 100 ml @ 200 mls/hr Q6H IV 10/22/16 10:00 11/02/16 05:56 (Catapres) 0.1 mg Q6H PRN PO 10/31/16 11:15 10/31/16 11:12 (Hydrodiuril) 25 mg DAILY PO 11/01/16 09:00 11/02/16 09:36 A/P Problem List: (1) Syncope ICD Code: R55 Status: Acute (2) Hypokalemia ICD Code: E87.6 Status: Resolved (3) Dehydration ICD Code: E86.0 Status: Resolved (4) Maxillary sinus mass ICD Code: R22.0 Status: Acute (5) Alcohol abuse ICD Code: F10.10 Status: Chronic (6) Abnormal urinalysis ICD Code: R82.90 Status: Acute (7) Weakness ICD Code: R53.1 Status: Acute Assessment and Plan Physical deconditioning Continue PT 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 Per PT, pt is improving in his conditioning. HTN Follow BP Continue HCTZ 25mg Daily PRN Clonidine 11/02/16: Elevations noted over night but he did not reach levels in which clonidine would be prescribed (160+ systolic). Chronic Sinusitis Maxillary sinus mass work up was consistent with chronic sinusitis per ENT Continue antibiotics till 11/05/16 Continue Flonase Alcohol Abuse Hx B12, Folic Acid, Vitamin replacements No further risk of DTs at this point DVT Prophylaxis SCD for seizure and fall risk Discharge Planning 11/01/16: [facility] PT recommended. Will discuss with PT tomorrow regarding potential discharge. 11/02/16: Case discussed with PT, pt walks 450 feet unassisted. Contnues to need treatment to address deconditioning issues. Problem Qualifiers (1) Syncope: Qualified Code: R55 - Syncope, unspecified syncope type Shubham Tilley Jr. November 02, 2016 09:44
[2016-11-02 20:00] VITALS: BP 130/93; PULSE 81; RESP 21; TEMP 97.6; O2SAT 96
[2016-11-03] MEDS: AMPICILLIN/SULBAC 1500 MG/NS 100 ML IV SCH ×8 (05:26→23:45)
[2016-11-03] MEDS: HYDROCHLOROTHIAZIDE 25 MG TAB PO SCH (09:12)
[2016-11-03] MEDS: SODIUM CHLORIDE 0.9% FLUSH 10 ML FLUSH IV FLUSH SCH ×2 (09:12→21:00)
[2016-11-03] MEDS: THIAMINE HCL 100 MG TAB PO SCH (09:14)
[2016-11-03 11:20] VITALS: BP_SYST 127; BP_SYST 152; BP_SYST 165; BP_DIAS 106; BP_DIAS 116; BP_DIAS 91; PULSE 105; RESP 15; TEMP 97.9; O2SAT 97
[2016-11-03 12:30] VITALS: BP 133/91
--- NOTE | 2016-11-03 13:11 | HHI.PR ---
Subjective Remarks "I'm just laying here." Pt being followed for syncope and deconditioning. Pt denied fever, cough, shortness of breath, nausea, vomiting, diarrhea, constipation. Pt reported having had a bowel movement last evening. No new issues/concerns reported by pt. Objective Vitals Vital Signs Date Time Temp Pulse Resp B/P Pulse Ox O2 Delivery O2 Flow Rate FiO2 11/03/16 11:20 97.9 105 15 165/116 97 152/106 127/91 11/02/16 20:00 97.6 81 21 130/93 96 I/O 11/02/16 11/02/16 11/02/16 11/03/16 11/03/16 11/03/16 07:00 15:00 23:00 07:00 15:00 23:00 Intake Total 120 ml 1400 ml 720 ml 370 ml Output Total 375 ml 525 ml 200 ml Balance -255 ml 1400 ml 195 ml 170 ml Intake Oral 120 ml 1200 ml 720 ml 120 ml IV Total 200 ml 250 ml Output Urine Total 375 ml 525 ml 200 ml Imaging No new imaging studies within the past 24 hours. Objective Remarks GENERAL: Pt awake and alert, laying a bed. SKIN: Warm and dry. HEAD: Normocephalic. EYES: No scleral icterus. No injection or drainage. NECK: Supple, trachea midline. No JVD or lymphadenopathy. CARDIOVASCULAR: Regular rate and rhythm without murmurs, gallops, or rubs. RESPIRATORY: Breath sounds equal bilaterally. No accessory muscle use. GASTROINTESTINAL: Abdomen soft, non-tender, nondistended. Bowel sounds present all quadrants. MUSCULOSKELETAL: No cyanosis, or edema. PSYCHIATRIC: Alert and oriented, mood and affect congruent, without overt signs of anxiety, depression or gross presentation of psychosis. At times, he evidenced some irritation but over all his mood was good. Procedures None Medications and IVs Current Medications Medications (Trade) Dose Ordered Sig/Catie Route Start Time Stop Time Status Last Admin (Vitamin B1) 100 mg DAILY PO 10/24/16 09:00 11/03/16 09:14 (Romazicon Inj) 0.2 mg Q1M PRN IV PUSH 10/21/16 20:00 (Ativan) 1 mg Q4H PRN PO 10/21/16 20:00 (Ativan Inj) 1 mg Q4H PRN IV PUSH 10/21/16 20:00 (Ativan) 2 mg Q2H PRN PO 10/21/16 20:00 (Ativan Inj) 2 mg Q2H PRN IV PUSH 10/21/16 20:00 (Ativan Inj) 2 mg Q1H PRN IV PUSH 10/21/16 20:00 (Ativan Inj) 2 mg Q15M PRN IV PUSH 10/21/16 20:00 (Haldol Inj) 2 mg Q15M PRN IM 10/21/16 20:00 (NS Flush) 2 ml UNSCH PRN IV FLUSH 10/21/16 20:00 11/02/16 05:57 (NS Flush) 2 ml BID IV FLUSH 10/21/16 21:00 11/03/16 09:12 (Zofran Inj) 4 mg Q6H PRN IVP 10/21/16 20:00 (Dulcolax Supp) 10 mg DAILY PRN RECTAL 10/21/16 20:00 (Tylenol) 650 mg Q6H PRN PO 10/21/16 20:00 ([place] 5-325 Mg) 1 tab Q4H PRN PO 10/21/16 20:00 Morphine Sulfate 4 mg 4 mg Q3H PRN IV 10/21/16 20:00 (Unasyn Inj/NS Inj) 100 ml @ 200 mls/hr Q6H IV 10/22/16 10:00 11/03/16 11:34 (Catapres) 0.1 mg Q6H PRN PO 10/31/16 11:15 10/31/16 11:12 (Hydrodiuril) 25 mg DAILY PO 11/01/16 09:00 11/03/16 09:12 Urinary Catheter: No Vascular Central Line Catheter: No A/P Problem List: (1) Syncope ICD Code: R55 Status: Acute (2) Hypokalemia ICD Code: E87.6 Status: Resolved (3) Dehydration ICD Code: E86.0 Status: Resolved (4) Maxillary sinus mass ICD Code: R22.0 Status: Acute (5) Alcohol abuse ICD Code: F10.10 Status: Chronic (6) Abnormal urinalysis ICD Code: R82.90 Status: Acute (7) Weakness ICD Code: R53.1 Status: Acute Assessment and Plan Physical deconditioning Continue PT 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 Per PT, pt is improving in his conditioning. 11/03/16 Pt continues to walk 450 feet unassisted, strength is good. Awaiting input from PT to determine when pt is ready for discharge. HTN Follow BP Continue HCTZ 25mg Daily PRN Clonidine 11/02/16: Elevations noted over night but he did not reach levels in which clonidine would be prescribed (160+ systolic). 11/03/16: Elevations noted but no clonidine prescribed. Chronic Sinusitis Maxillary sinus mass work up was consistent with chronic sinusitis per ENT Continue antibiotics till 11/05/16 Continue Flonase Alcohol Abuse Hx B12, Folic Acid, Vitamin replacements No further risk of DTs at this point DVT Prophylaxis SCD for seizure and fall risk Discharge Planning 11/01/16: [facility] PT recommended. Will discuss with PT tomorrow regarding potential discharge. 11/02/16: Case discussed with PT, pt walks 450 feet unassisted. Contnues to need treatment to address deconditioning issues. Problem Qualifiers (1) Syncope: Qualified Code: R55 - Syncope, unspecified syncope type Shubham Tilley Jr. November 03, 2016 13:11
[2016-11-03 20:00] VITALS: BP 146/98; PULSE 94; RESP 22; TEMP 98.7; O2SAT 96
[2016-11-03] MEDS: cloNIDine HCL 0.1 MG TAB PO PRN (20:34)
[2016-11-03 22:00] VITALS: BP 109/77
[2016-11-04] MEDS: AMPICILLIN/SULBAC 1500 MG/NS 100 ML IV SCH ×8 (05:16→23:26)
[2016-11-04] MEDS: SODIUM CHLORIDE 0.9% FLUSH 10 ML FLUSH IV FLUSH SCH ×2 (09:00→23:26)
[2016-11-04 09:06] VITALS: BP_SYST 117; BP_SYST 121; BP_SYST 142; BP_DIAS 86; BP_DIAS 89; BP_DIAS 93; PULSE 79; RESP 18; TEMP 96; O2SAT 93
[2016-11-04] MEDS: THIAMINE HCL 100 MG TAB PO SCH (09:49)
[2016-11-04] MEDS: HYDROCHLOROTHIAZIDE 25 MG TAB PO SCH (09:49)
--- NOTE | 2016-11-04 11:23 | HHI.PR ---
Subjective Remarks "I am doing ok. Just waiting for PT to come by." Pt being followed for syncopal episode and deconditioning. Pt noted his "strength" for walking is "good" and "they (PT) are working on my balance." Pt noted he feels "off balance" when he walks. Pt denied fever, nausea, vomiting, cough, shortness of breath. Pt denied dizziness upon rising. No other issues noted or reported by pt. Objective Vitals Vital Signs Date Time Temp Pulse Resp B/P Pulse Ox O2 Delivery O2 Flow Rate FiO2 11/04/16 09:06 96.0 79 18 121/86 93 142/93 117/89 11/03/16 22:00 109/77 11/03/16 20:00 98.7 94 22 146/98 96 11/03/16 12:30 133/91 11/03/16 11:20 97.9 105 15 165/116 97 152/106 127/91 I/O 11/03/16 11/03/16 11/03/16 11/04/16 11/04/16 11/04/16 07:00 15:00 23:00 07:00 15:00 23:00 Intake Total 370 ml 1200 ml 240 ml Output Total 200 ml 700 ml 400 ml Balance 170 ml 500 ml -160 ml Intake Oral 120 ml 1200 ml 240 ml IV Total 250 ml Output Urine Total 200 ml 700 ml 400 ml # Bowel Movements 0 0 Other Results No labs/interventions ordered or resulted within the past 24 hours. Imaging No imaging ordered within past 24 hours. Objective Remarks GENERAL: Pt was dozing at the start of the visit yet quickly awakened. He remained laying a bed. SKIN: Warm and dry. IV lines noted in the area of the left wrist. HEAD: Normocephalic. EYES: No scleral icterus. No injection or drainage. NECK: Supple, trachea midline. No JVD or lymphadenopathy. CARDIOVASCULAR: Regular rate and rhythm without murmurs, gallops, or rubs. RESPIRATORY: Breath sounds equal bilaterally. No accessory muscle use. GASTROINTESTINAL: Abdomen soft, non-tender, nondistended. Bowel sounds present all quadrants. MUSCULOSKELETAL: No cyanosis, or edema. PSYCHIATRIC: Alert and oriented, mood and affect congruent, without overt signs of anxiety, depression or gross presentation of psychosis. 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 Per PT, pt is improving in his conditioning. 11/03/16 Pt continues to walk 450 feet unassisted, strength is good. Awaiting input from PT to determine when pt is ready for discharge. 11/04/16 Discussed with PT, balance is reported to be fair, pt is reported to be working on his goals towards discharge. Per PT pt can be discharged at any time. HTN Follow BP Continue HCTZ 25mg Daily PRN Clonidine 11/02/16: Elevations noted over night but he did not reach levels in which clonidine would be prescribed (160+ systolic). 11/03/16: Elevations noted but no clonidine prescribed. 11/04/16: pt evidencing some episodes of elevated blood pressure as well as orthostatic hypotension. Regarding latter events, pt denied light headedness or syncope. Continue to address orthostatic issue. Chronic Sinusitis Maxillary sinus mass work up was consistent with chronic sinusitis per ENT Continue antibiotics till 11/05/16 Continue Flonase 11/04/16 IV antibiotics ongoing, with plan to discontinue tomorrow per ENT plan Alcohol Abuse Hx B12, Folic Acid, Vitamin replacements No further risk of DTs at this point DVT Prophylaxis SCD for seizure and fall risk Discharge Planning 11/01/16: [facility] PT recommended. Will discuss with PT tomorrow regarding potential discharge. 11/02/16: Case discussed with PT, pt walks 450 feet unassisted. Continues to need treatment to address deconditioning issues. 11/04/16: Discussed with Cm, home care not available for him at this time. Problem Qualifiers (1) Syncope: Qualified Code: R55 - Syncope, unspecified syncope type Shubham Tilley Jr. November 04, 2016 11:23
[2016-11-04 20:00] VITALS: BP 120/80; PULSE 94; RESP 16; TEMP 98.5; O2SAT 95
[2016-11-05] MEDS: ACETAMINOPHEN/HYDROcodone 325 MG/5 MG TAB PO PRN (03:06)
[2016-11-05] MEDS: AMPICILLIN/SULBAC 1500 MG/NS 100 ML IV SCH ×4 (05:47→12:49)
[2016-11-05 08:00] VITALS: BP 120/96; PULSE 93; RESP 18; TEMP 97.6; O2SAT 97
[2016-11-05] MEDS: SODIUM CHLORIDE 0.9% FLUSH 10 ML FLUSH IV FLUSH SCH ×2 (09:00→20:41)
[2016-11-05] MEDS: THIAMINE HCL 100 MG TAB PO SCH (09:32)
[2016-11-05] MEDS: HYDROCHLOROTHIAZIDE 25 MG TAB PO SCH (09:33)
--- NOTE | 2016-11-05 10:12 | HHI.PR ---
Subjective Remarks Follow-up for syncope and sinusitis. Patient completed IV antibiotics today. He was noted to be orthostatic on yesterday's vitals, but patient denies any dizziness or lightheadedness upon standing. Objective Vitals Vital Signs Date Time Temp Pulse Resp B/P Pulse Ox O2 Delivery O2 Flow Rate FiO2 11/05/16 08:00 97.6 93 18 120/96 97 Manual Cuff/Auscultation 11/04/16 20:00 98.5 94 16 120/80 95 I/O 11/04/16 11/04/16 11/04/16 11/05/16 11/05/16 11/05/16 07:00 15:00 23:00 07:00 15:00 23:00 Intake Total 240 ml 1230 ml 340 ml Output Total 400 ml 650 ml 250 ml 50 ml Balance -160 ml 580 ml 90 ml -50 ml Intake Oral 240 ml 1230 ml 240 ml IV Total 100 ml Output Urine Total 400 ml 650 ml 250 ml 50 ml # Voids 3 3 # Bowel Movements 0 1 0 Objective Remarks GENERAL: Well-nourished, well-developed patient in no apparent distress. SKIN: Warm and dry. HEAD: Atraumatic. Normocephalic. CARDIOVASCULAR: Regular rate and rhythm. RESPIRATORY: No accessory muscle use. Clear to auscultation. Breath sounds equal bilaterally. GASTROINTESTINAL: Abdomen soft, non-tender, nondistended. NEUROLOGICAL: Awake and alert. Motor grossly within normal limits. Normal speech. PSYCHIATRIC: Appropriate mood and affect. Procedures None Urinary Catheter: No Vascular Central Line Catheter: No A/P Problem List: (1) Syncope ICD Code: R55 Status: Acute (2) Hypokalemia ICD Code: E87.6 Status: Resolved (3) Dehydration ICD Code: E86.0 Status: Resolved (4) Maxillary sinus mass ICD Code: R22.0 Status: Acute (5) Alcohol abuse ICD Code: F10.10 Status: Chronic (6) Abnormal urinalysis ICD Code: R82.90 Status: Acute (7) Weakness ICD Code: R53.1 Status: Acute Assessment and Plan Syncope: c/o dizziness prior to event, likely due to dehydration -CT Head w/ no acute intracranial abnormality, noted to have sinus mass. -CXR normal. -EKG with tachycardia, sinus rhythm, and marked LAD, but no ischemia evident. Troponin x1 negative. -Echo: EF 45-50%, no significant regurgitation. -Patient orthostatic yesterday, awaiting orthostatic vitals for today. 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 HTN -Follow BP -Continue HCTZ 25mg daily -PRN Clonidine Chronic Sinusitis -Maxillary sinus mass work up was consistent with chronic sinusitis per ENT -S/p Decadron -Antibiotics, Unasyn till 11/05/16. Discontinued today as patient has had 14 days of treatment. -ENT recommends OTC Flonase 2 sprays each naris bid, although patient apparently has not been receiving this here. Recommends f/u with ENT outpatient. Alcohol Abuse Hx -B12 and Folate wnl -S/p MV/Folic acid IV and Thiamine IV. Currently on po Thiamine. -No further risk of DTs at this point DVT Prophylaxis -SCD for seizure and fall risk Discharge Planning 11/05/16: [facility] PT recommended. Will need to discuss social situation with case management. If orthostasis improved, possible discharge early this next week provided cleared by PT. Problem Qualifiers (1) Syncope: Qualified Code: R55 - Syncope, unspecified syncope type Toya Nguyen November 05, 2016 10:12
[2016-11-05 12:00] VITALS: BP_SYST 109; BP_SYST 124; BP_SYST 157; BP_DIAS 107; BP_DIAS 86; BP_DIAS 90
[2016-11-05 20:00] VITALS: BP 102/75; PULSE 83; RESP 19; TEMP 95.9; O2SAT 95
[2016-11-06 08:00] VITALS: BP_SYST 110; BP_SYST 121; BP_SYST 135; BP_DIAS 100; BP_DIAS 81; BP_DIAS 96; PULSE 84; RESP 18; TEMP 98; O2SAT 93
[2016-11-06] MEDS: THIAMINE HCL 100 MG TAB PO SCH (08:27)
[2016-11-06] MEDS: HYDROCHLOROTHIAZIDE 25 MG TAB PO SCH (08:28)
[2016-11-06] MEDS: SODIUM CHLORIDE 0.9% FLUSH 10 ML FLUSH IV FLUSH SCH ×2 (08:28→19:18)
--- NOTE | 2016-11-06 10:22 | HHI.PR ---
Subjective Remarks Follow-up for syncope and sinusitis s/p completion of antibiotics. Patient still orthostatic, but he denies any dizziness or lightheadedness upon standing. Denies any chest pain or shortness of breath. Objective Vitals Vital Signs Date Time Temp Pulse Resp B/P Pulse Ox O2 Delivery O2 Flow Rate FiO2 11/06/16 08:00 98.0 84 18 121/96 93 135/100 110/81 11/05/16 20:00 95.9 83 19 102/75 95 11/05/16 12:00 157/107 124/90 109/86 I/O 11/05/16 11/05/16 11/05/16 11/06/16 11/06/16 11/06/16 07:00 15:00 23:00 07:00 15:00 23:00 Intake Total 340 ml 500 ml 350 ml 240 ml Output Total 250 ml 50 ml 975 ml 450 ml Balance 90 ml 450 ml -625 ml -210 ml Intake Oral 240 ml 500 ml 240 ml 240 ml IV Total 100 ml 110 ml Output Urine Total 250 ml 50 ml 975 ml 450 ml # Voids 3 3 # Bowel Movements 0 0 Objective Remarks GENERAL: Well-nourished, well-developed patient in no apparent distress. CARDIOVASCULAR: Regular rate and rhythm. RESPIRATORY: No accessory muscle use. Clear to auscultation. Breath sounds equal bilaterally. GASTROINTESTINAL: Abdomen soft, non-tender, nondistended. NEUROLOGICAL: Awake and alert. Motor grossly within normal limits. Normal speech. PSYCHIATRIC: Appropriate mood and affect. Procedures None A/P Problem List: (1) Syncope ICD Code: R55 Status: Acute (2) Hypokalemia ICD Code: E87.6 Status: Resolved (3) Dehydration ICD Code: E86.0 Status: Resolved (4) Maxillary sinus mass ICD Code: R22.0 Status: Acute (5) Alcohol abuse ICD Code: F10.10 Status: Chronic (6) Abnormal urinalysis ICD Code: R82.90 Status: Acute (7) Weakness ICD Code: R53.1 Status: Acute Assessment and Plan Syncope: c/o dizziness prior to event, likely due to dehydration -CT Head w/ no acute intracranial abnormality, noted to have sinus mass. -CXR normal. -EKG with tachycardia, sinus rhythm, and marked LAD, but no ischemia evident. Troponin x1 negative. -Echo: EF 45-50%, no significant regurgitation. Orthostatic hypotension: HR decreases with BP. May be autonomic dysfunction attributed to alcohol use/neuropathy. Asymptomatic. -Urine output was greater than fluid intake over the past 24 hours. Will order BMP to evaluate for dehydration first. 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 HTN: -Follow BP -Continue HCTZ 25mg daily -PRN Clonidine Chronic Sinusitis: -Maxillary sinus mass work up was consistent with chronic sinusitis per ENT -S/p Decadron -Antibiotics, Unasyn till 11/05/16. Discontinued today as patient has had 14 days of treatment. -ENT recommends OTC Flonase 2 sprays each naris bid, although patient apparently has not been receiving this here. Recommends f/u with ENT outpatient. Alcohol Abuse Hx: -B12 and Folate wnl -S/p MV/Folic acid IV and Thiamine IV. Currently on po Thiamine. -No further risk of DTs at this point DVT Prophylaxis: -SCDs Discharge Planning 11/05/16: [facility] PT recommended. Will need to discuss social situation with case management. If orthostasis improved, possible discharge early this next week provided cleared by PT. Problem Qualifiers (1) Syncope: Qualified Code: R55 - Syncope, unspecified syncope type Toya Nguyen November 06, 2016 10:22
[2016-11-06 15:13] LABS: POTASSIUM 4.1 MEQ/L (3.5-5.1)
[2016-11-06 15:16] LABS: BICARBONATE 29.6 MEQ/L (21.0-32.0)
[2016-11-06 20:57] VITALS: BP 123/86; PULSE 85; RESP 18; TEMP 97.5; O2SAT 93
[2016-11-06] MEDS: ACETAMINOPHEN/HYDROcodone 325 MG/5 MG TAB PO PRN (23:12)
[2016-11-07 08:00] VITALS: BP_SYST 140; BP_SYST 145; BP_DIAS 94; BP_DIAS 99; PULSE 89; RESP 17; TEMP 97.9; O2SAT 96
[2016-11-07] MEDS: SODIUM CHLORIDE 0.9% FLUSH 10 ML FLUSH IV FLUSH SCH (09:00)
[2016-11-07] MEDS: HYDROCHLOROTHIAZIDE 25 MG TAB PO SCH (09:35)
[2016-11-07] MEDS: THIAMINE HCL 100 MG TAB PO SCH (09:35)
--- NOTE | 2016-11-07 10:30 | HHI.PR ---
Subjective Remarks Follow-up for syncope, orthostatic hypotension. Patient again denies any lightheadedness or dizziness upon standing. Objective Vitals Vital Signs Date Time Temp Pulse Resp B/P Pulse Ox O2 Delivery O2 Flow Rate FiO2 11/07/16 08:00 97.9 89 17 140/99 96 145/94 11/06/16 20:57 97.5 85 18 123/86 93 I/O 11/06/16 11/06/16 11/06/16 11/07/16 11/07/16 11/07/16 06:59 14:59 22:59 06:59 14:59 22:59 Intake Total 240 ml 720 ml 220 ml Output Total 450 ml 250 ml 700 ml Balance -210 ml 720 ml -250 ml -480 ml Intake Oral 240 ml 720 ml 220 ml Output Urine Total 450 ml 250 ml 700 ml # Voids 4 # Bowel Movements 1 Result Diagram: 11/06/16 1457 Objective Remarks GENERAL: Well-nourished, well-developed patient in no apparent distress. CARDIOVASCULAR: Regular rate and rhythm. RESPIRATORY: No accessory muscle use. Clear to auscultation. Breath sounds equal bilaterally. GASTROINTESTINAL: Normoactive bowel sounds. Abdomen soft, non-tender, nondistended. NEUROLOGICAL: Awake and alert. Motor grossly within normal limits. Normal speech. PSYCHIATRIC: Appropriate mood and affect. Procedures None Urinary Catheter: No Vascular Central Line Catheter: No A/P Problem List: (1) Syncope ICD Code: R55 Status: Acute (2) Orthostatic hypotension ICD Code: I95.1 Status: Acute (3) Hypokalemia ICD Code: E87.6 Status: Resolved (4) Dehydration ICD Code: E86.0 Status: Resolved (5) Maxillary sinus mass ICD Code: R22.0 Status: Acute (6) Alcohol abuse ICD Code: F10.10 Status: Chronic (7) Abnormal urinalysis ICD Code: R82.90 Status: Acute (8) Weakness ICD Code: R53.1 Status: Acute Assessment and Plan Syncope: c/o dizziness prior to event, likely due to dehydration -CT Head w/ no acute intracranial abnormality, noted to have sinus mass. -CXR normal. -EKG with tachycardia, sinus rhythm, and marked LAD, but no ischemia evident. Troponin x1 negative. -Echo: EF 45-50%, no significant regurgitation. Orthostatic hypotension: Improved. HR was decreasing with large decreases in BP. May be autonomic dysfunction attributed to alcohol use/neuropathy. Asymptomatic. -11/06: BMP reviewed. No evidence of dehydration. -11/07: Discussed with Dr. Key. Nothing to do as long as patient asymptomatic. No evidence of orthostasis today. 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 Per PT patient does not need HHC PT. HTN: -Follow BP -Continue HCTZ 25mg daily -PRN Clonidine Chronic Sinusitis: -Maxillary sinus mass work up was consistent with chronic sinusitis per ENT -S/p Decadron -Antibiotics, Unasyn till 11/05/16. Discontinued today as patient has had 14 days of treatment. -ENT recommends OTC Flonase 2 sprays each naris bid, although patient apparently has not been receiving this here. Recommends f/u with ENT outpatient. Alcohol Abuse Hx: -B12 and Folate wnl -S/p MV/Folic acid IV and Thiamine IV. Currently on po Thiamine. -No further risk of DTs at this point DVT Prophylaxis: -SCDs Discharge Planning 11/07/16: I have asked CM to assist with patient assistance setup, blue card. I spoke with PT who states patient does not require HHC PT. I informed Dr. Key of desire to discharge and he is agreeable. I spoke with the patient but he cannot be discharged today as he is awaiting a call regarding his friend who needs to bring him the keys to his home. I have placed the discharge order for tomorrow provided no clinical changes occur. Problem Qualifiers (1) Syncope: Qualified Code: R55 - Syncope, unspecified syncope type Toya Nguyen November 07, 2016 10:30
[2016-11-07] MEDS ORDERED: HYDR25TA5 PO (15:30)
[2016-11-07] MEDS ORDERED: VITA100T2 PO (15:30)
[2016-11-07] MEDS ORDERED: FLUT1SPR5 EACH NARE (16:00)
--- NOTE | 2016-11-07 16:44 | HHI.DCPOC ---
Discharge Care Plan Diagnosis: (1) Syncope (2) Orthostatic hypotension (3) Chronic sinusitis (4) HTN (hypertension) (5) Weakness (6) Hypokalemia (7) Alcohol abuse Goals to Promote Your Health * To prevent worsening of your condition and complications * To maintain your health at the optimal level Directions to Meet Your Goals Take your medications as prescribed Follow your dietary instruction Follow activity as directed Keep your appointments as scheduled Take your immunizations and boosters as scheduled If your symptoms worsen call your PCP, if no PCP go to Urgent Care Center or Emergency Room Smoking is Dangerous to Your Health. Avoid second hand smoke Call the 24-hour hour crisis hotline for domestic abuse at Toya Nguyen November 07, 2016 16:44
[2016-11-07 20:00] VITALS: BP 117/90; PULSE 101; RESP 18; TEMP 98.9; O2SAT 94
[2016-11-07] MEDS ORDERED: TEMAZEPAM 15 MG CAP PO PRN (20:00)
[2016-11-08 08:00] VITALS: BP_SYST 152; BP_SYST 160; BP_DIAS 100; BP_DIAS 98; PULSE 92; RESP 18; TEMP 97.8; O2SAT 92
[2016-11-08] MEDS: THIAMINE HCL 100 MG TAB PO SCH (08:49)
[2016-11-08] MEDS: HYDROCHLOROTHIAZIDE 25 MG TAB PO SCH (08:51)
--- NOTE | 2016-11-08 14:11 | HHI.DS ---
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 Patient is very poor historian and has little recollection of events. States that he was at [place] [employer] "trying to get my money", states a friend was waiting for him outside, on his way out of the [employer] had acute syncopal event. Reports some dizziness prior. Unclear if head trauma involved. On arrival, BP 135/88, HR 109, O2 sat 95% on RA, Afebrile. WBC 11.5. MCV 108. K+ 2.7. GFR 71. Trop negative. INR 1.2. Alcohol 6. CXR with no acute findings. CT Head with no acute intracranial abnormality, complete opacification of left maxillary, ethmoid and frontal sinus with suspected obstructing mass, recommendation for endoscopy and biopsy. Pt denies previous knowledge of sinus mass, denies any symptoms. Upon further questioning, pt does admit to drinking daily "whatever I'm in the mood for". States he normally drinks Whiskey, unable to quantify how much, but does admit to withdrawal type symptoms. Last drink was "a while back". CBC/BMP: 11/06/16 1457 Significant Findings Laboratory Tests Test 11/06/16 14:57 Blood Urea Nitrogen 5 MG/DL (7-18) Random Glucose 121 MG/DL (74-106) Calcium Level 8.2 MG/DL (8.5-10.1) Imaging Last Impressions Sinuses CT 10/22/16 0000 Signed Impressions: Service Date/Time: Saturday, October 22, 2016 09:08 - CONCLUSION: 1. Extensive mucosal disease on the left. This raises the possibility of polyposis. 2. The uncinate processes are not identified on either side which suggests the patient may have had prior sinus surgery. There does appear to be occlusion of the maxillary sinuses bilaterally secondary to mucosal disease. The mucosal disease is much worse on the left than the right. Joe Hill MD Head CT 10/21/16 1641 Signed Impressions: Service Date/Time: Friday, October 21, 2016 18:11 - CONCLUSION: 1. No acute intracranial abnormality. 2. Complete opacification left maxillary, ethmoid and frontal sinus. Obstructing mass is suspected. Endoscopy and biopsy recommended if not performed in the past. Los Danielle MD Chest X-Ray 10/21/16 1641 Signed Impressions: Service Date/Time: Friday, October 21, 2016 17:02 - CONCLUSION: No acute cardiopulmonary disease. Holger Reddy MD PE at Discharge GENERAL: Well-nourished, well-developed patient in no apparent distress. CARDIOVASCULAR: Regular rate and rhythm. RESPIRATORY: No accessory muscle use. Clear to auscultation. Breath sounds equal bilaterally. GASTROINTESTINAL: Normoactive bowel sounds. Abdomen soft, non-tender, nondistended. NEUROLOGICAL: Awake and alert. Motor grossly within normal limits. Normal speech. PSYCHIATRIC: Appropriate mood and affect. Hospital Course 61 year-old male who originally presented to hospital because of syncopal episode. Patient does have history of alcohol abuse and he was brought to the hospital because of a single episode while the [place] office. He was indicated that a friend was waiting for him outside and on his way out he fell down. It is unclear if there is any head injury involved. Patient was brought to the hospital for evaluation. Patient had signs of dehydration, significant hypokalemia, history of alcohol abuse, patient received hospital management is recommended patient benefit from rehabilitation placement. However patient has no benefits. Physical therapy evaluated patient and had multiple recommendations, he was not ambulating initially in the hospital. 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 Patient was then transferred to [facility] for continued management. Patient was transferred down on 11/01/16. Patient underwent physical therapy and management. At the time patient was transferred to [facility] he is walking 450 feet with standby assistance. Physical therapy was still recommending home with home health care PT. At the present time he is walking over 700 feet with standby assist. As indicated the patient was going to be discharged yesterday, however due to social reasons and ride purposes he was held overnight with discharge order in place to be discharged today. Case management was consulted to confirmed discharge planning. Patient care assistance was provided to the patient. Plan discharge accordingly. Pt Condition on Discharge: Stable Discharge Disposition: Discharge Home Discharge Time: > 30 minutes Discharge Instructions DIET: Follow Instructions for: Heart Healthy Diet Additional Diet Instructions: Abstain from alcohol. Activities you can perform: See Additionl Instruction Activities to Avoid: Driving for 24 hrs Other Activity Instructions: Sit up on side of bed for 1 minute prior to standing. Follow up Referrals: Ear Nose Throat - 1 Week with Joseph Buckner MD PCP Follow-up - 1 Week New Medications: Fluticasone Nasal [place] (Flonase Nasal [place]) 50 Mcg/Act [place] 2 SPRAY EACH NARE BID Allergies #1 Ref 0 BOTTLE Hydrochlorothiazide (Hydrochlorothiazide) 25 Mg Tab 25 MG PO DAILY Blood Pressure Management #30 TAB Thiamine (Vitamin B-1) 100 Mg Tab 100 MG PO DAILY Nutritional Supplement #30 TAB Romaine Velásquez November 08, 2016 14:11 Manoj Anand MD November 14, 2016 11:07
== END 2016-11-08 15:19 | disposition home or self-care (01) | DRG 312 ==
LOC: NEPE 16:21 → NEDH 19:48 → OBSVTOIN 20:19 → HOCB 10-22 00:58 → PH5A 10-31 23:45
PROVIDERS: ADMIT Hospitalist; ATTEND Hospitalist
DX: R55 Syncope and collapse (principal); F10.231 Alcohol dependence with withdrawal delirium; R56.9 Unspecified convulsions; N39.0 Urinary tract infection, site not specified; G62.9 Polyneuropathy, unspecified; E86.0 Dehydration; E87.6 Hypokalemia; J32.0 Chronic maxillary sinusitis; I10 Essential (primary) hypertension; R32 Unspecified urinary incontinence; Z91.81 History of falling
CPT/HCPCS: 70450; 70486; 71010; 80048; 80053; 80307; 81001; 82140; 82550; 82607; 82746; 82948; 83735; 84425; 84443; 84484; 85025; 85027; 85610; 85730; 87086; 93005; 93306; 96360; J0295; J1100; J2405; J3411; J3475; J3480; J7030; J7040